=== PATIENT | female | born 1985 | race Caucasian/White ===

== ENCOUNTER 2025-01-20 10:28 | Emergency (ER) | payer OTHER, SELFPAY ==
[2025-01-20] VITALS (14 sets, daily range): BP systolic 119–131; BP diastolic 74–86; PULSE 66–89; RESP 12–20; TEMP 36.4; O2SAT 94–100
--- NOTE | 2025-01-20 10:31 | ECG_ITS ---
Test Date: 2025-01-20 10:49:22 Measurements Intervals [place] Rate: 71 P: 42 NH: 139 QRS: 32 QRSD: 82 T: 30 QT: 363 QTc: 396 Interpretive Statements SINUS RHYTHM WITH SINUS ARRHYTHMIA BASELINE ARTIFACT- I, II, III, AVR, AVL, AVF NORMAL ECG No previous ECG available for comparison Electronically Signed On 01-20-2025 11:05:01 CDT by Emilio Figueroa D.O.
--- OUTSIDE RECORDS SUMMARY | 2025-01-20 11:46 | XMS_ITS | Encounter Summary ---
Author Organization [facility] Address [address] [place] [address] Care Team Providers Care Watermelon Inspector Name Role Phone Britt Jose MD Primary Care Provider [phone] Encounter Details Date Type Department Care Team (Latest Contact Info) Description 06/21/2022 Broomstick Productionshart Message Enc [facility] Multispecialty Care - [place] [address] [place] [address] [address] [place], [place] [phone] Britt Jose MD [address] [facility] [address] [place], [place] [phone] Estrogen/hormones levels Social History Tobacco Use Types Packs/Day Years Used Date Smoking Tobacco: Never Smokeless Tobacco: Never Comments:counseled by Dr Maryam reeves Alcohol Use Standard Drinks/Week Comments Yes 1.7 (1 standard drink = 0.6 oz p ure alcohol) occasionally PHQ-2 Answer Date Recorded PHQ-2 Score - If the patient scores above 3, please move on to questions 3-9 2 05/13/2022 Comments No Sex and Gender Information Value Date Recorded Sex Assigned at Not on file Legal Sex Female 9:50 AM CDT Gender Identity Not on file Sexual Orientation Not on file COVID-19 Exposure Response Date Recorded In the last 10 days, have yo u been in contact with someone who was confirmed or suspected to have Coronavirus/COVID-19? No / Unsure 06/24/2022 10:09 AM CDT documented as of this encounter Plan of Treatment Not on file documented as of this encounter Visit Diagnoses Not on filedocumented in this encounter Additional Health Concerns Assessment Noted Time PHQ-9 Depression Total Score: 1 11/01/19 22 11:48 AM SUPERVISOR POWDER AND PRIMER CANNING documented as of this encounter Care Teams Watermelon Inspector Relationship Specialty Start Date End Date Britt Jose MD [address] [address] PCP - General INTERNAL MEDICINE 04/26/21 documented as of this encounter
--- OUTSIDE RECORDS SUMMARY | 2025-01-20 11:46 | XMS_ITS | Encounter Summary ---
Author Organization [facility] Address [address] [place] [address] Care Team Providers Care Acute Care Occupational Therapist Name Role Phone Britt Jose MD Primary Care Provider [phone] Encounter Details Date Type Department Care Team (Late st Contact Info) Description 09/07/2022 Pharminoxhart Message Enc [facility] Multispecialty Care - [place] [address] [address] [place], [place] [phone] Britt Jose MD [address] [place] [address] 157 [place], [place] [phone] Sinus infection Social History Tobacco Use Types Packs/Day Years Used Date Smoking Tobacco: Never Smokeless Tobacco: Never Comments:counseled by Dr Maryam reeves Alcohol Use Standard Drinks/Week Comments Yes 1.7 (1 standard drink = 0.6 oz p ure alcohol) occasionally PHQ-2 Answer Date Recorded PHQ-2 Score - If the patient scores above 3, please move on to questions 3-9 0 07/22/2022 Comments No Sex and Gender Information Value Date Recorded Sex Assigned at Not on file Legal Sex Female 9:50 AM CDT Gender Identity Not on file Sexual Orientation Not on file COVID-19 Exposure Response Date Recorded In the last 10 days, have yo u been in contact with someone who was confirmed or suspected to have Coronavirus/COVID-19? No / Unsure 08/12/2022 8:34 AM CDT documented as of this encounter Plan of Treatment Not on file documented as of this encounter Visit Diagnoses Not on filedocumented in this encounter Additional Health Concerns Assessment Noted Time PHQ-9 Depression Total Score: 1 11/01/19 22 11:48 AM BOW MAKER PRODUCTION documented as of this encounter Care Teams Acute Care Occupational Therapist Relationship Specialty Start Date End Date Britt Jose MD [address] [address] PCP - General INTERNAL MEDICINE 04/26/21 documented as of this encounter
--- OUTSIDE RECORDS SUMMARY | 2025-01-20 11:46 | XMS_ITS | Encounter Summary ---
Author Organization [facility] Address [address] [place] [address] Care Team Providers Care Sports Book Server Name Role Phone Raoul Fairbanks MD Primary Care Provider [phone] Encounter Details Date Type Department Care Team (Late st Contact Info) Description 03/17/2020 Lab Requisition [facility] DermPath Lab [address] [facility], [place] [address] Laura Malloy DO [address] [facility] 3 [place] [address] Social History Tobacco Use Types Packs/Day Years Used Date Smoking Tobacco: Never Smokeless Tobacco: Never Comments No Sex and Gender Information Value Date Recorded Sex Assigned at Not on file Legal Sex Female 3:41 PM CDT Gender Identity Not on file Sexual Orientation Not on file documented as of this encounter Plan of Treatment Not on file documented as of this encounter Procedures Procedure Name Priority Date/Time Associated Diagnosis Comments DERMATOPATHOLOGY Routine 03/16/2020 12:0 0 AM CDT documented in this encounter Results * DERMATOPATHOLOGY (03/16/2020 12:00 AM CDT) Case Report Dermatopathology Report Case: [id number] Authorizing Provider: Laura Malloy DO Collected: 03/16/2020 12:00 AM Ordering Location: [facility] DermPath Lab Received: 03/17/2020 06:56 AM Pathologist: Alexandra Downey MD Specimen: Skin, left upper arm 0 3:29 PM CDT DERMATOPATHOLOGY LABORATORY Final Diagnosis Specimen A. SKIN, left upper arm: COMPOUND MELANOCYTIC PROLIFERATION; PRESENT AT MARGIN (D48.5) (see microscopic description and comment) 0 3:29 PM CDT DERMATOPATHOLOGY LABORATORY Clinical History R/O BCC. 0 3:29 PM CDT DERMATOPATHOLOGY LABORATORY Gross Description Specimen A: Received is one formalin filled container labeled with the patient's name and designated left upper arm. The specimen consists of a shave measuring [id number]. Jar 0. 0 3:29 PM CDT DERMATOPATHOLOGY LABORATORY Microscopic Description Specimen A. SKIN, left upper arm: Sections show a compound melanocytic proliferation. There is a lentiginous proliferation of melanocytes between irregular nests that is highlighted by MART-1/Melan A and HMB45 stains. Scattered melanocytes show evidence of upward migration within the epidermis. In the dermis there are irregular nests of melanocytes. This lesion is present at the margin of the specimen. COMMENT: Because this lesion is present at the margin of the specimen, symmetry and circumscription can not be evaluated. Therefore, a complete but conservative re-excision is recommended to evaluate this lesion in its entirety. 0 3:29 PM T DERMATOPATHOLOGY LABORATORY Disclaimer An external and internal positive and negative controls are appropriate for the histochemical, immunohistochemical and immunofluorescence stain(s) in this case (if any), except where stated explicitly. The performance characteristics of the stain(s) cited in this report were developed and its performance characteristic determined by the Dermatopathology Laboratory at [facility], directed by Dr. Ryan Mendoza. These tests need not be, and therefore are not, approved by the [place] Food and Drug Administration. The tests are used for clinical purposes. Billing Codes Specimen Charges Stain Charges 35753 1 71546 57198 1 1 0 3:29 PM CDT DERMATOPATHOLOGY LABORATORY Embedded Images 0 3:29 PM CDT DERMATOPATHOLOGY LABORATORY Pathology/Cytolog y TISSUE SPECIMEN FROM SKIN / Unknown 03/16/2020 03/17/2020 6:56 AM CDT us Laura Malloy DO LAB - PATHOLOGY/CYTOLOGY ORDERABLES Final Result DERMATOPATHOLOGY LABORATORY [facility] - Department of Dermatology Director Of Acquisition Marketing Center/[address] [phone] documented in this encounter Visit Diagnoses Not on filedocumented in this encounter Care Teams Sports Book Server Relationship Specialty Start Date End Date Raoul Fairbanks MD PCP - General 04/28/20 documented as of this encounter
--- OUTSIDE RECORDS SUMMARY | 2025-01-20 11:46 | XMS_ITS | Encounter Summary ---
Author Organization [facility] Address [address] [place] [address] Care Team Providers Care Agency Recruiter Name Role Phone Britt Jose MD Primary Care Provider [phone] Encounter Details Date Type Department Care Team (Latest Contact Info) Description 08/03/2022 Spacecomhart Message Enc [facility] Medical Group Multispecialty Care - [place] [address] [place] [address] [address] [place] [address] Britt Jose MD [address] [facility] 157 [place], [place] [phone] Discontinue zoloft Social History Tobacco Use Types Packs/Day Years [...] suspected to have Coronavirus/COVID-19? No / Unsure 07/29/2022 8:42 AM CDT documented as of this encounter Plan of Treatment Not on file documented as of this encounter Visit Diagnoses Not on filedocumented in this encounter Additional Health Concerns Assessment Noted Time PHQ-9 Depression Total Score: 1 11/01/19 22 11:48 AM TOWN JUSTICE documented as of this encounter Care Teams Agency Recruiter Relationship Specialty Start Date End Date Britt Jose MD [address] [address] PCP - General INTERNAL MEDICINE 04/26/21 documented as of this encounter
--- OUTSIDE RECORDS SUMMARY | 2025-01-20 11:46 | XMS_ITS | Encounter Summary ---
Author Organization [facility] Address [address] [place] [address] Care Team Providers Care Wood Barker Name Role Phone Britt Jose MD Primary Care Provider [phone] Encounter Details Date Type Department Care Team (Late st Contact Info) Description 04/05/2023 Watermark Medicalhart Message [facility] - [facility] [address] [place], [place] [address] [facility], [facility] Provider Air Quality Message Social History Tobacco Use Types Packs/Day Years [...] Total Score: 1 11/01/19 22 11:48 AM CLINICAL REGISTERED NURSE documented as of this encounter Care Teams Wood Barker Relationship Specialty Start Date End Date Britt Jose MD [address] [facility] [address] [place] [address] PCP - General INTERNAL MEDICINE 04/26/21 documented as of this encounter
--- OUTSIDE RECORDS SUMMARY | 2025-01-20 11:46 | XMS_ITS | Encounter Summary ---
Author Organization [facility] Address [address] [facility] [place] [address] Care Team Providers Care Head Of Maintenance Name Role Phone Raoul Fairbanks MD Primary Care Provider [phone] Encounter Details Date Type Department Care Team (Late st Contact Info) Description 07/30/2024 Lab Requisition [facility] - DermPath Lab [address] [facility], [place] [address] Stacy Malone MD [address] [facility] 3 [place] [address] Social History Tobacco Use Types Packs/Day Years [...] Priority Date/Time Associated Diagnosis Comments DERMATOPATHOLOGY Routine 07/30/2024 9:44 AM CDT documented in this encounter Results * DERMATOPATHOLOGY (07/30/2024 9:44 AM CDT) Case Report Dermatopathology Report Case: [id number] Authorizing Provider: Stacy Malone MD Collected: 07/30/2024 09:44 AM Ordering Location: [facility] Physician [facility] - Received: 07/30/2024 04:29 PM DermPath Lab Pathologist: Shiloh Hurtado MD Specimen: Skin, mid low back 4:04 PM CDT DERMATOPATHOLOGY LABORATORY Final Diagnosis Specimen A. SKIN, mid low back: LENTIGINOUS MELANOCYTIC NEVUS, COMPOUND TYPE (D22.5) 4:04 PM CDT DERMATOPATHOLOGY LABORATORY Clinical History Nevus r/o atypia, irregular color 4:04 PM CDT DERMATOPATHOLOGY LABORATORY Gross Description Specimen A: Received is one formalin filled container labeled with the patient's name and designated mid low back. The specimen consists of a shave biopsy measuring 6x6x1 mm. Jar 0. 4:04 PM CDT DERMATOPATHOLOGY LABORATORY Microscopic Description Specimen A. SKIN, mid low back: This is a compound nevus. There is a lentiginous proliferation of melanocytes between nevus nests of cells along the dermal-epidermal junction. There is underlying lamellar fibroplasia of the papillary dermis. The intradermal component is bland in appearance and matures with depth. (Compound Jluis's Nevus) 4:04 PM CDT DERMATOPATHOLOGY LABORATORY Disclaimer An external and internal positive and negative controls are appropriate for the histochemical, immunohistochemical and immunofluorescence stain(s) in this case (if any), except where stated explicitly. The performance characteristics of the stain(s) cited in this report were developed and its performance characteristic determined by the Dermatopathology Laboratory at [facility], directed by Dr. Ryan Mendoza. These tests need not be, and therefore are not, approved by the [place] Food and Drug Administration. The tests are used for clinical purposes. Billing Codes Specimen Charges Stain Charges 08213 1 4:04 PM CDT DERMATOPATHOLOGY LABORATORY Embedded Images 4:04 PM CDT DERMATOPATHOLOGY LABORATORY Pathology/Cytolo gy TISSUE SPECIMEN FROM SKIN / Unknown 07/30/2024 9:44 AM CDT 07/30/2024 4:29 PM CDT Stacy Malone MD LAB - PATHOLOGY/CYTOLOGY OR DERABLES Final Result DERMATOPATHOLOGY LABORATORY [facility] - Department of Dermatology [address], [address] [phone] documented in this encounter Visit Diagnoses Not on filedocumented in this encounter Care Teams Head Of Maintenance Relationship Specialty Start Date End Date Raoul Fairbanks MD PCP - General 04/28/20 documented as of this encounter
--- OUTSIDE RECORDS SUMMARY | 2025-01-20 11:46 | XMS_ITS | Clinical Summary ---
Author Organization [facility] Address [address] [facility] [place] [address] Care Team Providers Care Powder Coater Name Role Phone Raoul Fairbanks MD Primary Care Provider [phone] [facility],non-owned Affiliates and Associated Physician Practices is amultiple site organization consisting of ambulatory clinics and hospital sitesin [place], [place], [place] and [place]. This disclosure is being madepursuant to the Care Everywhere program and may not contain all information available regarding this patient. Last updated 18.[facility] Allergies No known active allergies Medications * Be aware that medications may not be up to date on this document. Alwaysverify current medications with the patient. Cetirizine HCl (ZYRTEC ALLERGY PO) Active Vit-Fe Fumarate-FA ( VITAMIN) 27-0.8 MG tablet Take 1 tablet by mouth once daily Active etonogestrel (NEXPLANON) 68 MG implant 68 mg by Subdermal route as directed Active Social History Tobacco Use Types Packs/Day Years Used Date Smoking Tobacco: Never Smokeless Tobacco: Never Comments No Sex and Gender Information Value Date Recorded Sex Assigned at Not on file Legal Sex Female 3:41 PM CDT Gender Identity Not on file Sexual Orientation Not on file Last Filed Vital Signs Vital Sign Reading Time Taken Comments Blood Pressure 128/80 09/30/2019 6:55 PM FRYER OPERATOR Pulse 80 09/30/2019 6:55 PM FRYER OPERATOR Temperature 36.6 C (97.8 F) 09/30/2019 6:55 PM FRYER OPERATOR Respiratory Rate 16 09/30/2019 6:55 PM FRYER OPERATOR Oxygen Saturation 98% 09/30/2019 6:55 PM FRYER OPERATOR Inhaled Oxygen Concentration - - Weight 81.6 kg (180 lb) 09/30/2019 6:55 PM FRYER OPERATOR Height 170.2 cm (5' 7 ) 09/30/2019 6:55 PM FRYER OPERATOR Body Mass Index 28.19 09/30/2019 6:55 PM FRYER OPERATOR Plan of Treatment Health Maintenance Due Date Last Done Comments PAP SMEAR 1986 HIV SCREENING 2001 HEPATITIS C SCREENING 05/07/2004 DTAP/TDAP/TD VACCINES (1 - Tdap) 2005 HEPATITIS B VACCINE (1 of 3 - 19+ 3-dose series) 2005 COVID-19 VACCINE ( - 2023-2 5 season) 2024 DEPRESSION SCREENING 10/09/2024 INFLUENZA VACCINE (Season Ended) 2025 ZOSTER VACCINE (1 of 2) 2036 HIB VACCINE Aged Out No longer eligi ble based on patient's age to complete this topic HPV VACCINE Aged Out No longer eligi ble based on patient's age to complete this topic MENINGOCOCCAL (Group B) VACC INE SHARED DECISION-MAKING Aged Out No longer eligibl e based on patient's age to complete this topic MENINGOCOCCAL GROUPS A/C/Y/W VACCINE Aged Out No longer eligible b ased on patient's age to complete this topic PNEUMOCOCCAL VACCINE Aged Out No long er eligible based on patient's age to complete this topic Insurance [facility] Care Teams Powder Coater Relationship Specialty Start Date End Date Raoul Fairbanks MD PCP - General 04/28/20
--- OUTSIDE RECORDS SUMMARY | 2025-01-20 11:46 | XMS_ITS | Encounter Summary ---
Author Organization [facility] Address [address] [facility] [place] [address] Care Team Providers Care Engineering Scientist Name Role Phone Raoul Fairbanks MD Primary Care Provider [phone] Encounter Details Date Type Department Care Team (Late st Contact Info) Description 04/28/2020 Lab Requisition [facility] DermPath Lab [address] [facility], [place] [address] Laura Malloy DO 12[address] [facility] 3 [place] [address] Social History Tobacco Use Types Packs/Day Years [...] Priority Date/Time Associated Diagnosis Comments DERMATOPATHOLOGY Routine 04/27/2020 12:0 0 AM CDT documented in this encounter Results * DERMATOPATHOLOGY (04/27/2020 12:00 AM CDT) Case Report Dermatopathology Report Case: [id number] Authorizing Provider: Laura Malloy DO Collected: 04/27/2020 12:00 AM Ordering Location: [facility] DermPath Lab Received: 04/28/2020 06:18 AM Pathologist: Shiloh Hurtado MD Specimen: Skin, left upper arm 0 7:51 PM CDT DERMATOPATHOLOGY LABORATORY Final Diagnosis Specimen A. SKIN, left upper arm: DERMAL SCAR RESIDUAL MELANOCYTIC PROLIFERATION NOT IDENTIFIED (L90.5) 0 7:51 PM CDT DERMATOPATHOLOGY LABORATORY Clinical History Compound sivakumar prolif bx proven. Previous Bx: [id number]. 0 7:51 PM CDT DERMATOPATHOLOGY LABORATORY Gross Description Specimen A: Received is one formalin filled container labeled with the patient's name and designated left upper arm.The specimen consists of an ellipse measuring [id number] and is oriented with the notch at the 12 o'clock position, not labeled on the requisition. The epidermal surface consists of a centrally located 6x6mm previous biopsy site. The 12 to 6 o'clock margin is inked green. The 6 o'clock to 12 o'clock margin is inked black. The 12 o'clock tip is submitted in cassette 1. The 6 o'clock tip is submitted in cassette 2. The remainder of the ellipse is serially sectioned and submitted in cassettes 3-4. Jar 0. 0 7:51 PM CDT DERMATOPATHOLOGY LABORATORY Microscopic Description Specimen A. SKIN, left upper arm: There are fibroblasts and collagen bundles oriented parallel to the skin surface. There are elongated blood vessels, some of which are oriented perpendicular to the skin surface. No residual melanocytic proliferation is identified. 0 7:51 PM CDT DERMATOPATHOLOGY LABORATORY Disclaimer An external and internal positive and negative controls are appropriate for the histochemical, immunohistochemical and immunofluorescence stain(s) in this case (if any), except where stated explicitly. The performance characteristics of the stain(s) cited in this report were developed and its performance characteristic determined by the Dermatopathology Laboratory at [facility], directed by Dr. Ryan Mendoza. These tests need not be, and therefore are not, approved by the [place] Food and Drug Administration. The tests are used for clinical purposes. Billing Codes Specimen Charges Stain Charges 33009 1 0 7:51 PM CDT DERMATOPATHOLOGY LABORATORY Embedded Images 0 7:51 PM CDT DERMATOPATHOLOGY LABORATORY Pathology/Cytolog y TISSUE SPECIMEN FROM SKIN / Unknown 04/27/2020 04/28/2020 6:18 AM CDT us Laura Malloy DO LAB - PATHOLOGY/CYTOLOGY ORDERABLES Final Result DERMATOPATHOLOGY LABORATORY [facility] - Department of Dermatology Cyber Security Systems Engineer Center/[address] [phone] documented in this encounter Visit Diagnoses Not on filedocumented in this encounter Care Teams Engineering Scientist Relationship Specialty Start Date End Date Raoul Fairbanks MD PCP - General 04/28/20 documented as of this encounter
--- OUTSIDE RECORDS SUMMARY | 2025-01-20 11:46 | XMS_ITS | Clinical Summary ---
Author Organization [facility] Address [facility] [place] [address] Care Team Providers Care Final Dressing Cutter Name Role Phone Britt Jose MD Primary Care Provider [phone] Allergies No known active allergies Medications Cetirizine HCl (ZYRTEC ALLERGY) 10 MG CapIndications:Al lergic rhinitis, unspecified seasonality, unspecified trigger Take 10 mg by mouth daily as needed. 30 capsule 2 Active albuterol sulfate HFA 108 (90 Base) MCG/ACT inhalerIndication s:Allergic rhinitis, unspecified seasonality, unspecified trigger,Mild intermittent asthma without complication (HHS/HCC) Inhale 2 puffs into the lungs every 6 (six) hours as needed for Wheezing. 18 g 5 2 Active sertraline (ZOLOFT) 50 MG tabletIndications :RIMA (generalized anxiety disorder) Take 1 tablet (50 mg total) by mouth daily. 30 tablet 1 2 Active vitamin D2, ergocalciferol, (DRISDOL) 26492 UNITS capsuleIndication s:Vitamin D deficiency Take 1 capsule (50,000 Units total) by mouth weekly. 12 capsule 1 2 Active vitamin B-12 (CYANOCOBALAMIN) (CYANOCOBALAMIN) 1000 mcg tabletIndications :Vitamin B 12 deficiency Take 1 tablet (1,000 mcg total) by mouth daily. 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 HPV 16+/18-, 2018 pap - HPV+, 06/2018 pap-, 05/2017 pap -, 05/2017 Colpo ECC-, 10/2016 ASCUS HPV+ Consult with Dr. Munoz scheduled 11/29/21 Cervical high risk human pap illomavirus (HPV) DNA test positive 04/26/2021 Thrombophilia ([facility]) 06/02/2017 H/O: depression 05/18/2017 Allergic rhinitis 11/09/2009 Mild intermittent asthma ([facility]) 11/15/2004 Resolved Problems Problem Noted Date Diagnosed Date Resolved Date COVID-19 04/26/2021 04/26/2021 Vitamin D deficiency 01/25/2021 021 Hyperlipidemia 11/24/2020 04/26/2021 IUGR (intrauterine growth re striction) affecting care of mother, third trimester, fetus [address]) 12/06/2018 04/26/2021 Overview (04/26/2021): Last Assessment & Plan: EFW 1967g <5% Breech presentation Anterior placenta CHAGO 11.5cm Bpp 8 PI 1.17 MCA PS 57.4 BMZ given in office today followed by Dexamethasone 4mg po TID for 2 days. Recommend delivery at 37 weeks gestation Continue twice weekly testing Global care continues with Dr Colbert. History of 08/20/2018 021 Overview (04/26/2021): Last Assessment & Plan: Desires repeat History of delivery, currently in third trimester ([facility]) 08/20/2018 IUGR (intrauterine growth re striction) in prior , , third trimester ([facility]) 08/20/2018 04/26/2021 Asthma ([facility]) 05/18/2017 04/26/2021 Immunizations Immunization Administration Dates Next Due Fluzone 6 Months+ Quad (0.5 mL Prefilled Syringe ) 07/22/2022,11/01/2021 Tdap (Generic) 11/27/2018,03/17/2017 Family History Medical History Relation Comments CKD Maternal Grandfather Cancer Maternal Grandfather Testicular and bladder cancer testicular cancer Maternal Grandfather Alcohol Abuse Mother Depression Mother Diabetes Mother Drug Abuse Mother Mental Health Mother Relation Status Comments Father Alive Maternal Grandfather Mother Alive Social History Tobacco Use Types Packs/Day Years Used Date Smoking Tobacco: Never Smokeless Tobacco: Never Tobacco Cessation:Counseling Given: Yes Comments:counseled by Dr Joes Alcohol Use Standard Drinks/Week Comments Yes 1.7 [...] Sign Reading Time Taken Comments Blood Pressure 112/74 07/22/2022 11:06 AM CDT Pulse 72 07/22/2022 11:06 AM CDT Temperature 37.2 C (99 F) 07/22/2022 11:06 AM CDT Respiratory Rate 16 07/22/2022 11:06 AM CDT Oxygen Saturation 98% 07/22/2022 11:06 AM CDT Inhaled Oxygen Concentration - - Weight 86.6 kg (191 lb) 07/22/2022 11:06 AM CDT Height 172.7 cm (5' 8 ) 07/22/2022 11:06 AM CDT Body Mass Index 29.04 07/22/2022 11:06 AM CDT Plan of Treatment Health Maintenance Due Date Last Done Comments Pneumococcal Vaccine: Pediatrics (0 to 5 Years) and At-Risk Patients (6 to 49 Years) (1 of 2 - PCV) 1992 Hepatitis B Vaccines (1 of 3 - 19+ 3-dose series) 2005 Annual Physical 05/13/2023 05/13/2022, 04/26/2021 COVID-19 Vaccine (2023-2 5 season) 2024 10/13/2021, 01/31/2021, 01/09/2021 Cervical Cancer Screening Pa p Smear (Age 30 to 64) Every 3 Years 08/16/2024 08/16/2021 PHQ-2 (Physician Mobile) 10/09/2024 Cervical Cancer Screening Pa p with HPV Testing (Age 30 to 64) Every 5 Years 07/22/2025 07/22/2020 Cervical Cancer Screening wi th HPV 07/22/2025 DTaP, Tdap and Td Vaccines ( 3 - Td or Tdap) 11/27/2028 11/27/2018, 03/17/2017 Hepatitis C Completed 05/13/2022 HPV Vaccines Aged Out No longer eligi ble based on patient's age to complete this topic Meningococcal B Vaccine Aged Out No l onger eligible based on patient's age to complete this topic Meningococcal Vaccine Aged Out No claudia salazar eligible based on patient's age to complete this topic RSV Immunizations Under 20 Months Aged Out No longer eligible b ased on patient's age to complete this topic Procedures Procedure Name Priority Date/Time Associated Diagnosis Comments HEPATITIS C ANTIBODY Routine 05/13/2022 9:39 AM CDT Annual physical exam General medical exam Encounter for hepatitis C screening test for low risk patient OUTSIDE CYTOPATH CERV/VAG INTERPRET (PAP) 07/22/2020 from Last 3 Months or Most Recently Relevant to Health Maintenance Results * HEPATITIS C ANTIBODY (05/13/2022 9:39 AM CDT) HEPATITIS C AB NON-REACTI VE NON-REACT LUCY 05/13/2022 6:42 PM CDT [facility] Comment: ANTIBODIES TO HCV NOT DETECTED. DOES NOT EXCLUDE THE POSSIBILITY OF EXPOSURE TO HCV. 05/13/2022 9:39 AM CDT Britt Jose MD LABORATORY Final Result [facility] [address] [place] [address], [id number] * OUTSIDE CYTOPATH VAG/CERV PAP WITH HPV (07/22/2020) 07/22/2020 Narrative 07/22/2020 Ordered by an unspecified provider. us Documents Scanned SCANNING Final Result from Last 3 Months or Most Recently Relevant to Health Maintenance Insurance Care Teams Final Dressing Cutter Relationship Specialty Start Date End Date Britt Jose MD [address] [facility] [address] [place] [id number] PCP - General INTERNAL MEDICINE 04/26/21
--- OUTSIDE RECORDS SUMMARY | 2025-01-20 11:46 | XMS_ITS | Clinical Summary ---
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 Gender Identity Not on file Sexual Orientation Not on file Plan of Treatment Health Maintenance Due Date Last Done Comments Hepatitis C Virus (HCV) Screening 1986 Hepatitis B Immunization (1 of 3 - 19+ 3-dose series) 2005 Influenza Immunization (#1) 2024 SARS-COV-2 Immunization ( season) 2024 10/13/2021, 01/31/2021, 01/09/2021 Respiratory Syncytial Virus (RSV) Immunization (Adult) (1 - 1-dose 75+ series) 2061 DTaP/Tdap/Td Immunization Discontinued 11/27/2018 TdaP Immunization Completed 11/27/2018 Meningococcal Immunization (ACWY) Aged Out No longer eligible based on patient's age to complete this topic Pneumococcal Immunization Combined Aged Out No longer eligible based on patient's age to complete this topic Rotavirus Immunization Aged Out No lo nger eligible based on patient's age to complete this topic
--- NOTE | 2025-01-20 12:16 | ED_ITS ---
HPI - Arrhythmia/Palpitations General Chief Complaint: Arrhythmia/Palpitations Stated Complaint: my heart is skipping beats Time Seen by Provider: 01/20/25 12:11 Source: patient Mode of arrival: ambulatory Limitations: no limitations History of Present Illness HPI narrative: 39 years old white female with history of anxiety depression not on medications came to the ED by private car from home complaining of intermittent feeling of skipped beats for over 1 month, was seen by family physician recently, scheduled for possible Holter monitor placement next week. Patient is telling me that [place] and that is stressful for her. She denies any chest pain, abdominal pain or any pain. Patient denies any fever, chills, nausea, vomiting, diarrhea, constipation or urinary symptoms. Related Data Home Medications ?Medication ?Instructions ?Recorded ?Confirmed ?Last Taken ?Type cetirizine 10 mg tablet (24Hour 10 mg PO DAILY 01/20/25 01/20/25 Unknown History Allergy) ergocalciferol (vitamin D2) 1,250 1,250 mcg PO WEEKLY 01/20/25 01/20/25 Unknown History mcg (50,000 unit) capsule Allergies Allergy/AdvReac Type Severity Reaction Status Date / Time No Known Allergies Allergy Unverified 01/20/25 11:16 Review of Systems 2 Review of Systems: All systems reviewed & are unremarkable except as noted in HPI and below Exam 2 Narrative: General appearance: Well-developed, well-nourished, looks anxious Skin: Normal color Head: Normocephalic, nontraumatic Eyes: Clear conjunctiva ENT: Oropharynx normal, ears normal, nose normal Neck: Supple, nontender Chest and respiratory: Airway patent, no respiratory distress, no accessory muscle use Heart: Regular rate/rhythm Abdomen: Soft, nontender, no organomegaly, quiet bowel sounds Vascular: Normal peripheral pulses, normal capillary refill. Musculoskeletal: Normal range of motion, nontender back Neurologic: Alert and oriented ?3, BESSEMER REGULATOR is normal as tested, no gross motor deficit Course Vital Signs Vital signs: Vital Signs Temperature 36.4 C L 01/20/25 11:05 Pulse Rate 75 01/20/25 11:05 Respiratory Rate 16 01/20/25 11:05 Blood Pressure 126/74 01/20/25 11:05 Pulse Oximetry 98 01/20/25 11:05 Oxygen Delivery Room Air 01/20/25 11:05 Temperature 36.4 C L 01/20/25 11:05 Pulse Rate 81 01/20/25 14:17 Respiratory Rate 13 01/20/25 14:17 Blood Pressure 130/86 01/20/25 14:17 Pulse Oximetry 94 01/20/25 14:17 Oxygen Delivery Room Air 01/20/25 11:05 MDM - Arrhythmia/Palpitations MDM Narrative Medical decision making narrative: Patient presents with feeling skipped beats Vital signs are stable Physical examination showing slightly stressed looking patient Differential diagnosis anxiety like symptoms, palpitation, electrolyte imbalance, dehydration, cardiac abnormalities, hyperthyroidism, urinary tract infection, Blood workup today includes CBC, CMP, TSH showed no significant abnormality EKG showed normal sinus rhythm Urinalysis showed no significant abnormality Diagnosis palpitation/anxiety like symptoms Discharged home to follow-up with her family physician The pt was discharged to home.the pt,s condition upon discharge was fair,education was provided to the pt in reference to the final impression,discharge study results,treatment,prognosis and need for follow up . Differential Diagnosis Differential diagnosis: Likely other (As above) Medical Records Attestation: I reviewed the patient's medical records. Lab Data 01/20/25 12:30 01/20/25 12:30 Labs: Lab Results 01/20/25 01/20/25 Range/Units 12:30 12:37 WBC 9.0 (4.5-10.0) K/mm3 RBC 4.81 (4.2-5.4) M/mm3 Hgb 13.7 (12.0-15.0) g/dL Hct 42.1 (37.0-47.0) % MCV 87.5 (80-100) fl MCH 28.5 (26-34) pg MCHC 32.5 (32-36) g/dl RDW 11.7 (11.5-14.5) % Plt Count 266 (150-375) k/mm3 MPV 10.6 H (7.4-10.4) fl Immature Gran % (Auto) 0.2 (0-0.5) % Neut % (Auto) 59.5 (45.5-73.1) % Lymph % (Auto) 31.1 (18.3-44.2) % [place] % (Auto) 7.4 (2.6-8.5) % Eos % (Auto) 1.0 (0-4.4) % Baso % (Auto) 0.8 (0.2-1.2) % Lymph # (Auto) 2.80 (0.9-3.2) K/mm3 [place] # (Auto) 0.7 H (0.1-0.6) K/mm3 Eos # (Auto) 0.1 (0-0.3) K/mm3 Baso # (Auto) 0.1 (0.0-0.1) K/mm3 Abs Immat Gran (auto) 0.02 (0.00-0.031) K/mm3 Absolute Neuts (auto) 5.4 (1.3-6.7) K/mm3 Absolute Nucleated RBC 0.000 (0.0-0.012) K/mm3 Nucleated RBC % 0.0 (0.0-0.2) % Sodium 138 (137-145) mmol/L Potassium 4.2 (3.4-5.0) mmol/L Chloride 104 (98-107) mmol/L Carbon Dioxide 26 (22-30) mmol/L Anion Gap 8 (4-12) mmol/L BUN 19 H (7-17) mg/dL Creatinine 0.74 (0.7-1.0) mg/dL Estim Creat Clear Calc 99 ml/min Estimated GFR > 60 (59 - ) Glucose 94 (65-110) mg/dL Calcium 9.1 (8.4-10.2) mg/dL Total Bilirubin 0.5 (0.2-1.3) mg/dL AST 23 (14-36) U/L ALT 20 (6-35) U/L Alkaline Phosphatase 86 (38-126) U/L Troponin I < 0.012 (0.000-0.034) ng/mL Total Protein 8.0 (6.3-8.2) g/dL Albumin 4.7 (3.5-5.1) g/dL TSH 1.570 (0.465-4.680) uIU/mL Urine Color Yellow (Yellow) Urine Appearance Clear (Clear) Urine pH 7.0 (5.0-9.0) Ur Specific [place] 1.008 (1.001-1.035) Urine Protein Negative (Negative) mg/dL Urine Glucose (UA) Negative (Negative) mg/dL Urine Ketones Negative (Negative) mg/dL Ur Blood (Man) Negative (Negative) Urine Nitrate Negative (Negative) Urine Bilirubin Negative (Negative) Urine Urobilinogen 0.2 (<2.0) mg/dL Leukocyte Esterase Rfl Negative (Negative) KISHAN/UL POC Urine HCG, Qual Negative (Negative) Urine Opiates Screen Negative (Negative) Urine Methadone Screen Negative (Negative) Ur Barbiturates Screen Negative (Negative) Ur Phencyclidine Scrn Negative (Negative) Ur Amphetamine Screen Negative (Negative) U Benzodiazepines Scrn Negative (Negative) Urine Cocaine Screen Negative (Negative) U Cannabinoids Screen Negative (Negative) ECG Data EKG #1: Attestation: I personally reviewed and interpreted this ECG as follows: ECG completion date: 01/20/25 Interpretation: Normal sinus rhythm at 71 beats per minute, normal EKG Critical Care Time Critical Care Time Critical Care Time: No Discharge Plan Discharge Clinical Impression: Palpitations, Anxiety Patient Disposition: Home Condition: Stable Instructions: Heart Palpitations (DC), Anxiety (ED) Patient Language: Czech Prescriptions: No Action ergocalciferol (vitamin D2) 1,250 mcg (50,000 unit) capsule 1,250 mcg PO WEEKLY cetirizine [24Hour Allergy] 10 mg tablet 10 mg PO DAILY Follow-up/Referrals: Jesus,Estrella Davis APRN [Primary Care Provider] -
[2025-01-20 12:37] LABS: BEDSIDEPREGUCG Negative (Negative)
[2025-01-20 12:40] LABS: Basophils Absolute Auto 0.1 K/mm3 (0.0-0.1); Basophils Percent Auto 0.8 % (0.2-1.2); Eosinophils Absolute Auto 0.1 K/mm3 (0-0.3); Hematocrit 42.1 % (37.0-47.0); Hemoglobin 13.7 g/dL (12.0-15.0); Immature Granulocyte Absolute 0.02 K/mm3 (0.00-0.031); Immature Granulocyte Percent A 0.2 % (0-0.5); Lymphocytes Percent Auto 31.1 % (18.3-44.2); Mean Corpuscular HGB Conc 32.5 g/dl (32-36); Mean Corpuscular Hemoglobin 28.5 pg (26-34); Mean Corpuscular Volume 87.5 fl (80-100); Mean Platelet Volume 10.6 fl (7.4-10.4); Monocytes Absolute Auto 0.7 K/mm3 (0.1-0.6); Monocytes Percent Auto 7.4 % (2.6-8.5); Neutrophils Absolute Auto 5.4 K/mm3 (1.3-6.7); Neutrophils Percent Auto 59.5 % (45.5-73.1); Platelet Count Result 266 k/mm3 (150-375); Red Blood Count 4.81 M/mm3 (4.2-5.4); Red Cell Distribution Width 11.7 % (11.5-14.5)
[2025-01-20 12:45] LABS: Add Urine Microscopic? NO; Appearance Urine Clear (Clear); Bilirubin Urine Negative (Negative); Blood Urine Negative (Negative); Color Urine Yellow (Yellow); Glucose Urine UA Negative (Negative); Ketones Urine Negative (Negative); Leukocyte Esterase Ur Negative LEU/UL (Negative); Nitrate Urine Negative (Negative); Protein Urine Negative (Negative); Specific Grav Ur 1.008 (1.001-1.035); Urobilinogen Urine 0.2 mg/dL (<2.0)
[2025-01-20 13:05] LABS: Amphetamine Screen Urine Negative (Negative); Barbiturate Screen Urine Negative (Negative); Benzodiazepines Screen Urine Negative (Negative); Cannabinoid Screen Urine Negative (Negative); Cocaine Screen Urine Negative (Negative); Methadone Screen Urine Negative (Negative); Opiate Screen Urine Negative (Negative); Phencyclidine Screen Urine Negative (Negative)
[2025-01-20 13:07] LABS: Alanine Aminotransferase 20 U/L (6-35); Albumin Level 4.7 g/dL (3.5-5.1); Alkaline Phosphatase 86 U/L (38-126); Anion Gap 8 mmol/L (4-12); Aspartate Amino Transferase 23 U/L (14-36); Bilirubin,Total 0.5 mg/dL (0.2-1.3); Blood Urea Nitrogen 19 mg/dL (7-17); Calcium 9.1 mg/dL (8.4-10.2); Carbon Dioxide 26 mmol/L (22-30); Chloride 104 mmol/L (98-107); Estimated CRCL calculation 99 ml/min; Estimated Glomerular Filt Rate > 60; Glucose 94 mg/dL (65-110); Potassium 4.2 mmol/L (3.4-5.0); Sodium 138 mmol/L (137-145)
[2025-01-20 13:09] LABS: Troponin I < 0.012 ng/mL (0.000-0.034)
--- OUTSIDE RECORDS SUMMARY | 2025-01-20 13:32 | XMS_ITS | Encounter Summary ---
Author Organization [facility] Healthcare Address [address] [place] [address] Care Team Providers Care Software Engineering Supervisor Name Role Phone Mandie Colbert MD Unavailable [phone] Estrella Lee NP Primary Care Provider [phone] Encounter Details Date Type Department Care Team (Late st Contact Info) Description 01/02/2025 Results Follow-Up [facility] Medical Group Primary Care at [address] [address] Estrella Lee NP [address] [place] [address] [address] [place] [address] Social History Tobacco Use Types Packs/Day Years Used Date Smoking Tobacco: Never Cigarettes Passive Smoke Exposure: Never Smokeless Tobacco: Never Alcohol Use Standard Drinks/Week Comments Not Currently 0 (1 standard drink = 0.6 oz pur e alcohol) AUDIT-C Answer Date Recorded Q1: How often do you have a drink containing alc ohol? 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 Gender Identity Not on file Sexual Orientation Not on file documented as of this encounter Ordered Prescriptions Prescription Sig Dispense Quantity Refills Last Filled Start Date End Date ergocalciferol (VITAMIN D) 50,000 unit capsule Take 1 capsule (50,000 Units total) by mouth once a week 12 capsule 01/02/2025 documented in this encounter Plan of Treatment Upcoming Encounters Date Type Department Care Team (Late st Contact Info) Description 01/23/2025 2:30 PM CDT Hospital Encounter [facility] [address] [place] [address] documented as of this encounter Visit Diagnoses Not on filedocumented in this encounter Care Teams Software Engineering Supervisor Relationship Specialty Start Date End Date Estrella Lee NP [address] [facility] [address] [place] [address] PCP - General Family Medicine 01/19/23 Mandie Colbert MD High Voltage Electrician Obstetrics and Gynecology 07/09/18 documented as of this encounter
--- OUTSIDE RECORDS SUMMARY | 2025-01-20 13:32 | XMS_ITS | Referral Summary ---
Author Organization [facility] Address [address] [place] [address] Care Team Providers Care Stable Attendant Name Role Phone Mandie Colbert MD Unavailable [phone] Estrella Lee NP Primary Care Provider [phone] Encounters Date Type Department Care Team Description 01/02/2025 Results Follow-Up [facility] Primary Care at [address] [phone] Estrella Lee NP 01/01/2025 8:18 PM CDT - 01/01/2025 11:59 PM CDT Hospital Encounter [facility] [id number] [place] [id number] Heart palpitations; Magnesium deficiency; Vitamin D deficiency; Lipid screening; Iron deficiency Discharge Disposition: Discharge to home or self care 01/01/2025 2:00 PM CDT Lab [facility] Outpatient Lab at [address] [phone] Heart palpitations (Primary Dx) 01/01/2025 1:00 PM CDT Office Visit [facility] Primary Care at [address] [phone] Estrella Lee NP Heart palpitations (Primary Dx); Cervical cancer screening; Lipid screening; Vitamin D deficiency; Magnesium deficiency; Iron deficiency 12/31/2024 Nurse Triage [facility] Primary Care at [address] [phone] Estrella Lee, ANNIE from Last 3 Months Allergies No known active allergies Medications cetirizine (ZyrTEC) 10 mg tablet Take 1 tablet (10 mg total) by mouth daily Active ibuprofen (ADVIL,MOTRIN) 600 mg tablet Take 1 tablet (600 mg total) by mouth every 6 (six) hours as needed for pain 45 tablet 9 Active Additional Information Patient not taking.Reported on 01/01/2025 albuterol (PROAIR RESPICLICK) 90 mcg/actuation inhaler 1 Active magnesium gluconate 200 mg tabletIndicatio ns:hypomagnesem ia 1 tablet (200 mg total) Active zinc gluconate 100 mg tablet Take by mouth Ac tive ergocalciferol (VITAMIN D) 50,000 unit capsule Take 1 capsule (50,000 Units total) by mouth once a week 12 capsule 5 Active Active Problems Problem Noted Date Diagnosed Date Heart palpitations 01/01/2025 Vitamin B 12 deficiency 07/24/2022 High risk human papilloma virus (HPV) infection of cervix 09/28/2021 Overview (10/12/2021): 08/16/21 pap - HPV+, 07/28 Pap - HPV+... HPV 16+/18-, 2018 pap - HPV+, 06/2018 pap-, 05/2017 pap -, 05/2017 Colpo ECC-, 10/2016 ASCUS HPV+ Consult with Dr. Munoz scheduled 11/29/21 Vitamin D deficiency 01/25/2021 Hyperlipidemia 11/24/2020 History of 08/20/2018 Assessment & Plan (12/13/2018 12:50 PM FACE AND FILL PACKER): Desires repeat Thrombophilia 06/02/2017 Anxiety state 11/26/2009 Allergic rhinitis 11/09/2009 Mild intermittent asthma 11/15/2004 Assessment & Plan (01/23/2023 8:31 AM CDT): Uses prn inhaler very sparingly. Controlled overall. Resolved Problems Problem Noted Date Diagnosed Date Resolved Date COVID-19 01/18/2023 02/13/2024 Encounter for routine cancer follow-up 11/29/2021 02/13/2024 Abnormal uterine bleeding (AUB) 11/29/2021 02/13/2024 Cervical high risk human pap illomavirus (HPV) DNA test positive 04/26/2021 02/13/2024 IUGR (intrauterine growth re striction) affecting care of mother, third trimester, fetus 1 12/06/2018 02/13/2024 Assessment & Plan (12/13/2018 12:53 PM FACE AND FILL PACKER): EFW 1967g <5% Breech presentation Anterior placenta CHAGO 11.5cm Bpp 8/8 PI 1.17 MCA PS 57.4 BMZ given in office today followed by Dexamethasone 4mg po TID for 2 days. Recommend delivery at 37 weeks gestation Continue twice weekly testing Global care continues with Dr Colbert. IUGR (intrauterine growth re striction) in prior , , third trimester 08/20/2018 02/13/2024 History of delivery, currently in third trimester 08/20/2018 02/13/2024 cardiac anomaly affect ing , antepartum 02/28/2017 02/13/2024 Maternal HPV (human papillomavirus) 02/24/2017 02/13/2024 Asthma 02/24/2017 02/13/2024 Atypical squamous cells of u ndetermined significance on cytologic smear of cervix (ASC-US) 02/24/2017 02/13/2024 Marginal insertion of umbilical cord 02/24/2017 02/13/2024 Back pain 11/26/2009 02/13/2024 Depression 11/26/2009 02/13/2024 Assessment & Plan (01/23/2023 8:39 AM CDT): Patient wanting other recommendations that is not purely medication, discussed medication would be beneficial for her and we could see about getting her in with Psychologist for further behavioral therapies. She is agreeable, will restart the Lexapro 10 mg and follow up in 6 weeks. Immunizations Immunization Administration Dates Next Due Influenza, Quadrivalent, Spl it, Preservative Free, Intramuscular 07/22/2022,11/01/2021 Influenza, Unspecified 10/09/2023(Deferr ed: Patient Refused),10/09/2023(Deferred: Patient Refused),10/09/2022(Deferred: Patient Refused),10/09/2022(Deferred: Patient Refused) Tdap 11/27/2018,03/17/2017 Social History Tobacco Use Types Packs/Day Years Used Date Smoking Tobacco: Never Cigarettes Passive Smoke Exposure: Never Smokeless Tobacco: Never Tobacco Cessation:Counseling Given: Not Answered Alcohol Use Standard Drinks/Week Comments Not Currently [...] on file Legal Sex Female 3:12 PM FACE AND FILL PACKER Gender Identity Not on file Sexual Orientation Not on file Last Filed Vital Signs Vital Sign Reading Time Taken Comments Blood Pressure 124/66 01/01/2025 1:01 PM CDT Pulse 94 01/01/2025 1:01 PM CDT Temperature 36.9 C (98.4 F) 01/01/2025 1:01 PM CDT Respiratory Rate 16 03/23/2023 2:01 PM CDT Oxygen Saturation 98% 01/01/2025 1:01 PM CDT Inhaled Oxygen Concentration - - Weight 84.8 kg (187 lb) 01/01/2025 1:01 PM CDT Height 171 cm (5' 7.32 ) 01/01/2025 1:01 PM CDT Body Mass Index 29.01 01/01/2025 1:01 PM CDT Plan of Treatment Upcoming Encounters Date Type Department Care Team (Late st Contact Info) Description 01/23/2025 2:30 PM CDT Hospital Encounter [facility] Cardiology [address] [place] [id number] Medical Devices Implanted Type Area Director Of Strategic Sourcing Device Identifier Shelf Expiration Date Model / Serial / Lot [employer] [id number] Seprafilm 6x5in Barrier Adhesion Sterile Disposable Latex Free - [id number] Implanted:Qty: 1 on 12/27/2018 by Jaylyn Sandhu MD at [facility] [employer] [id number] 04/07/2021 [id number] / / [id number] Procedures Procedure Name Priority Date/Time Associated Diagnosis Comments ECG 12-LEAD Routine 01/01/2025 1:57 PM CDT Heart palpitations EGFR Routine 01/01/2025 12:00 PM CDT Heart palpitations DIFFERENTIAL AUTO Routine 01/01/2025 12: 00 PM CDT Heart palpitations CBC WITH AUTO DIFFERENTIAL Routine 01/01/2025 12:00 PM CDT Heart palpitations COMPREHENSIVE METABOLIC PANEL Routine 01/01/2025 12:00 PM CDT Heart palpitations IRON Routine 01/01/2025 12:00 PM CDT Heart palpitations Iron deficiency LIPID PANEL Routine 01/01/2025 12:00 PM CDT Lipid screening THYROID FUNCTION CASCADE Routine 01/01/2025 12:00 PM CDT Heart palpitations VITAMIN D 25 HYDROXY Routine 01/01/2025 12:00 PM CDT Vitamin D deficiency MAGNESIUM Routine 01/01/2025 12:00 PM CDT Heart palpitations Magnesium deficiency PAP AND HIGH RISK HPV, REFLEX TO GENOTYPING Routine 08/16/2021 1:48 PM FACE AND FILL PACKER Pap smear of cervix shows high risk HPV present Screening for human papillomavirus (HPV) HEPATITIS C ANTIBODY Routine 05/28/2018 4:16 PM CDT from Last 3 Months or Most Recently Relevant to Health Maintenance Results * ECG 12-LEAD (01/01/2025 1:57 PM CDT) Narrative Estrella Lee NP - 01/01/2025 1:57 PM CDT Estrella Lee NP 01/01/2025 1:57 PM ECG 12 lead Date/Time: 01/01/2025 1:57 PM Performed by: Estrella Lee NP Authorized by: Estrella Lee NP Previous ECG: no previous ECG available Rhythm: sinus rhythm Ectopy: infrequent PVCs Rate: normal QRS axis: normal Conduction: conduction normal ST Segments: ST segments normal T Waves: T waves normal Estrella Lee NP ECG ORDERABLES Edited Result - Final * eGFR (01/01/2025 12:00 PM CDT) eGFR 68 >=60 mL/min/1. 73 m2 Comment: Interpretive Data Reference Interval Normal >/= 90 mL/min/1.73m2 Mildly decreased* 60 - 89 mL/min/1.73m2 Mildly to moderately decreased 45 - 59 mL/min/1.73m2 Moderately to severely decreased 30 - 44 mL/min/1.73m2 Severely decreased 15 - 29 mL/min/1.73m2 Kidney Failure < 15 mL/min/1.73m2 *Relative to young adult level Estimated glomerular filtration rate is determined by the 2020 CKD-EPI equation recommended by the National Kidney Foundation (A Unifying Approach to GFR Estimation: Recommendations of the NKF-ASK Task Force on Reassessing the Inclusion of Race in Diagnosing Kidney Disease, JASN 202). The CKD-EPI equation should not be used for patients with unstable renal function and has not been validated in children and those over 70. Current interpretive data was last reviewed 2021. Blood 01/01/2025 12:0 0 PM CDT 01/01/2025 8:45 PM CDT Estrella Lee NP LAB BLOOD ORDERABLES Final Resul t VERONICA HADDAD [address] Department [place] [address] * Differential, auto (01/01/2025 12:00 PM CDT) Neutrophil abs 5.5 1.5 - 6.5 K/cumm Imm gran abs 0.0 0.0 - 0.1 K/cumm [facility] Lymphocyte abs 2.6 0.8 - 3.3 K/cumm [facility] Monocyte abs 0.6 0.2 - 0.8 K/cumm [facility] Eosinophil abs 0.1 0.0 - 0.5 K/cumm [facility] Basophil abs 0.1 0.0 - 0.1 K/cumm [facility] Neutrophil pct 61.9 % [facility] Comment: Interpretive Data Percent cell count reference ranges are not reported, since discordance with absolute values may lead to misinterpretation of CBC data. Current Interpretive Data was last revised on 2018. Imm gran pct 0.3 % [facility] Comment: Interpretive Data Percent cell count reference ranges are not reported, since discordance with absolute values may lead to misinterpretation of CBC data. Current Interpretive Data was last revised on 2018. Lymphocyte pct 29.1 % [facility] Comment: Interpretive Data Percent cell count reference ranges are not reported, since discordance with absolute values may lead to misinterpretation of CBC data. Current Interpretive Data was last revised on 2018. Monocyte pct 6.7 % [facility] Comment: Interpretive Data Percent cell count reference ranges are not reported, since discordance with absolute values may lead to misinterpretation of CBC data. Current Interpretive Data was last revised on 2018. Eosinophil pct 1.0 % [facility] Comment: Interpretive Data Percent cell count reference ranges are not reported, since discordance with absolute values may lead to misinterpretation of CBC data. Current Interpretive Data was last revised on 2018. Basophil pct 1.0 % [facility] Comment: Interpretive Data Percent cell count reference ranges are not reported, since discordance with absolute values may lead to misinterpretation of CBC data. Current Interpretive Data was last revised on 2018. Blood 01/01/2025 12:0 0 PM CDT 01/01/2025 8:31 PM CDT us Estrella Lee NP LAB BLOOD ORDERABLES Final Resul t VERONICA HADDAD [address] Department [place] [address] * Thyroid Function [place] (01/01/2025 12:00 PM CDT) TSH 1.19 0.30 - 4.20 mcIUnit/mL Blood 01/01/2025 12:0 0 PM CDT 01/01/2025 8:31 PM CDT us Estrella Lee RECORDS MANAGEMENT CLERK LAB BLOOD ORDERABLES Final Resul t Performing Organization Address City/[facility] Co de Phone Number VERONICA [address] [address] [facility] [email or web address] [address] * CBC with auto differential (01/01/2025 12:00 PM CDT) Pathologist [facility] WBC 8.9 3.8 - 9.9 K/cumm Hgb 13.4 11.9 - 15.5 g/dL [facility] Hct 40.5 35.6 - 45.5 % [facility] Plt 272 150 - 400 K/cumm [facility] MPV 11.0 9.1 - 12.3 fL [facility] RBC 4.58 3.90 - 5.20 M/cumm [facility] MCV 88.4 81.3 - 96.4 fL [facility] MCH 29.3 27.1 - 33.3 pg [facility] MCHC 33.1 32.3 - 35.7 g/dL [facility] RDW CV 12.0 11.1 - 14.9 % [facility] RDW SD 38.5 35.7 - 48.1 fL [facility] NRBC abs 0.00 0.00 - 0.01 K/cumm [facility] Blood 01/01/2025 12:0 0 PM CDT 01/01/2025 8:31 PM CDT us Estrella Lee RECORDS MANAGEMENT CLERK LAB BLOOD ORDERABLES Final Resul t Performing Organization Address City/[facility]/ZIP Co de Phone Number VERONICA HADDAD [id number] [address] [facility] [email or web address] [address] * (ABNORMAL) Vitamin D 25 hydroxy (01/01/2025 12:00 PM CDT) Pathologist [facility] Vitamin D 25-OH 18(L) 30 - 80 ng/mL Blood 01/01/2025 12:0 0 PM CDT 01/01/2025 8:31 PM CDT us Estrella Lee RECORDS MANAGEMENT CLERK LAB BLOOD ORDERABLES Edited Resu lt - Final Performing Organization Address [facility] Co de Phone Number JUANKIA [phone] [email or web address] [address] * Magnesium (01/01/2025 12:00 PM CDT) [facility] Magnesium 2.5 1.4 - 2.5 mg/dL Blood 01/01/2025 12:0 0 PM CDT 01/01/2025 8:31 PM CDT us Estrella Lee RECORDS MANAGEMENT CLERK LAB BLOOD ORDERABLES Final Resul t Performing Organization Address [facility] de Phone Number JUANKIA [address] Department [email or web address] [address] * Iron level (01/01/2025 12:00 PM CDT) [facility] Iron 73 35 - 145 mcg/dl Blood 01/01/2025 12:0 0 PM CDT 01/01/2025 8:31 PM CDT us Estrella Lee RECORDS MANAGEMENT CLERK LAB BLOOD ORDERABLES Final Resul t Performing Organization Address [facility] de Phone Number VERONICA [address] Department [email or web address] [place] [address] * (ABNORMAL) Lipid panel (01/01/2025 12:00 PM CDT) [facility] Cholesterol 190 30 - 199 mg/dL Comment: Interpretive Data Ages < or = 19 years Acceptable: <170 mg/dL Borderline high: 170-199 mg/dL High: >or= 200 mg/dL Ages > or = 20 years Desirable: <200 mg/dL Borderline high: 200-239 mg/dL High: >or= 240 mg/dL Literature References: 1. Expert Panel on Integrated Guidelines for Cardiovascular Health and Risk Reduction in Children and Adolescents. Pediatrics 2011;128:S213 2. NCEP Expert Panel. Circulation 2004;110:227 Current Interpretive Data was last revised on 2018. Triglycerides 202(H) <=149 mg/dL VERONICA Comment: Interpretive Data Ages < or = 9 years Acceptable: <75 mg/dL Borderline high: 75-99 mg/dL High: >or= 100 mg/dL Ages 10 to 20 years Acceptable: <90 mg/dL Borderline high: 90-129 mg/dL High: >or= 130 mg/dL Ages > or = 20 years Desirable: <150 mg/dL Borderline high: 150-199 mg/dL High: 200-499 mg/dL Very high: >or= 499 mg/dL Literature References: 1. Expert Panel on Integrated Guidelines for Cardiovascular Health and Risk Reduction in Children and Adolescents. Pediatrics 2011;128:S213 2. NCEP Expert Panel. Circulation 2004;110:227 Current Interpretive Data was last revised on 2018. HDL 40 >=40 mg/dL VERONICA Comment: Interpretive Data Ages < or = 19 years Acceptable: >45 mg/dL Borderline low: 40-45 mg/dL Low: <40 mg/dL Ages > or = 20 years Desirable: >or= 60 mg/dL Low: <40 mg/dL Literature References: 1. Expert Panel on Integrated Guidelines for Cardiovascular Health and Risk Reduction in Children and Adolescents. Pediatrics 2011;128:S213 2. NCEP Expert Panel. Circulation 2003;110:227 Current Interpretive Data was last revised on 2018. LDL, calculated 115 <=129 mg/dL VERONICA Comment: Interpretive Data Ages < or = 19 years Acceptable: <110 mg/dL Borderline high: 110-129 mg/dL High: >or= 130 mg/dL Ages > or = 20 years Optimal: <100 mg/dL Near optimal: 100-129 mg/dL Borderline high: 130-159 mg/dL High: >160 mg/dL Calculated using the Lei LDL-C estimating equation. This equation was implemented on 2024. Prior to this date LDL-C was estimated using the Friedewald equation. Literature References: 1. Expert Panel on Integrated Guidelines for Cardiovascular Health and Risk Reduction in Children and Adolescents. Pediatrics 2011;128:S213 2. NCEP Expert Panel. Circulation 2004;110:227 3. Quique M et al. JN Cardiol. 2020 February 06;5(5):540-548. doi: 10.1001/jamacardio.2020.0013 Current Interpretive Data was last revised on 2024. Non-HDL Cholesterol 150 mg/dL [facility] Comment: Interpretive Data Ages < or = 19 years Acceptable: <120 mg/dL Borderline high: 120-144 mg/dL High: >145 mg/dL Ages > or = 20 years When triglycerides are >200 mg/dL, Non-HDL cholesterol is a secondary target of therapy with treatment goals that are 30 mg/dL greater than the LDL cholesterol target. Literature References: 1. Expert Panel on Integrated Guidelines for Cardiovascular Health and Risk Reduction in Children and Adolescents. Pediatrics 2011;128:S213 2. NCEP Expert Panel. Circulation 2004;110:227 Current Interpretive Data was last revised on 2018. Chol/HDL ratio 5 [facility] Blood 01/01/2025 12:0 0 PM CDT 01/01/2025 8:31 PM CDT Estrella Lee NP LAB BLOOD ORDERABLES Final Resul t VERONICA [address] Department [place] [address] * Comprehensive metabolic panel (01/01/2025 12:00 PM CDT) Sodium 137 135 - 145 mmol/L Potassium, pl 4.3 3.3 - 4.9 mmol/L [facility] Chloride 102 97 - 110 mmol/L [facility] CO2 22 22 - 32 mmol/L [facility] Anion gap 13 2 - 15 mmol/L [facility] BUN 23 6 - 25 mg/dL [facility] Creatinine 1.07 0.60 - 1.10 mg/dL [facility] Glucose 89 70 - 199 mg/dL [facility] Comment: Interpretive Data Fasting glucose >/= 126 mg/dl is diagnostic for diabetes. Fasting is defined as no caloric intake for at least 8 hours. Fasting glucose between 100 mg/dl to 125 mg/dl is diagnostic of prediabetes. In a patient with classic symptoms of hyperglycemia or hyperglycemic crisis, a random glucose >/= 200 mg/dl is diagnostic for diabetes. In the absence of unequivocal hyperglycemia, results should be confirmed by repeat testing. The classification and Diagnosis of Diabetes Diabetes Care 2021; 46: S19-S40. Current interpretive data was last revised 2022. Calcium 9.4 8.5 - 10.3 mg/dL [facility] Bilirubin, total 0.2 0.1 - 1.2 mg/dL [facility] Protein, pl 7.6 6.5 - 8.5 g/dL [facility] Albumin 4.6 3.5 - 5.0 g/dL [facility] Alk phos 79 40 - 130 Units/L [facility] ALT 10 7 - 45 Units/L [facility] AST 25 10 - 45 Units/L [facility] Blood 01/01/2025 12:0 0 PM CDT 01/01/2025 8:31 PM CDT us Estrella Lee NP LAB BLOOD ORDERABLES Final Resul t VERONICA [address] Department [place] [address] * Pap and High Risk HPV, reflex to Genotyping (08/16/2021 1:48 PM FACE AND FILL PACKER) Swab (Pap test) 08/16/2021 1 :48 PM FACE AND FILL PACKER 08/18/2021 9:56 AM FACE AND FILL PACKER Narrative PATHOLOGY [facility] - 08/24/2021 9:40 AM FACE AND FILL PACKER EPIC results best viewed via link to PDF [place] [address] [facility], [place], [place] [address] Tele: Tonja Laura MD - Agriculture Professor CYTOLOGY REPORT Note to Patients: This report may contain a detailed description of human tissue sent by a health care provider to the laboratory for pathologic evaluation. The content of this report is essential for diagnosis and may provide important critical findings. This information may be unfamiliar to patients to review without a medical professional present. It is advised that the patient review this report in the presence of a health care provider who can answer questions and explain the details. Patient Name: SALIMA YANG Address: [address] [place] [address] Gender: F : 1985 (Age: 36) Service: Location: N : [id number] [facility] #: [id number] Patient Type: [facility] SPECIMEN Taken: 08/16/2021 Reported: 08/24/2021 Physician(s): Mandie Colbert M.D. FINAL DIAGNOSIS: Specimen Type: - ThinPrep Pap and HPV w/ reflex Genotyping Statement of Specimen Adequacy: Source: Cervical/Endocervical - Satisfactory for interpretation - Endocervical /Transformation Zone component present - Case screened using computer assisted imaging technology and manually re- screened by a hospitality host. General Categorization: - Negative for intraepithelial lesion or malignancy Interpretation: - Specimen sent for reflex HPV testing. xbb/08/24/2021 09:40 JENN Gatica (ASCP) JENN Webster (ASCP) Report Reviewed and Electronically Signed By JENN Webster (ASCP) Clerical Data Follow A; [id number] ADDENDA: Addendum Comment Ancillary Testing: HPV High Risk Group (16, 18, 31, 33, 35, 39, 45, 51, 52, 56, 58, 59, 66 and 68) - Detected Reference Range: Not Detected This test was performed using the SPRING 48[address] JENN Webster (ASCP) Date Ordered: 08/19/2021 Status: Signed Out Date Complete: 08/25/2021 By: JENN Webster (ASCP) Date Reported: 08/25/2021 Addendum Comment Ancillary Testing: HPV Genotype 16 - Detected Reference Range: Not Detected HPV Genotype 18 - Not Detected Reference Range: Not Detected This test was performed using the SPRING [address] JENN Webster (ASCP) Date Ordered: 08/25/2021 Status: Signed Out Date Complete: 08/25/2021 By: JENN Webster (ASCP) Date Reported: 08/27/2021 DIAGNOSIS COMMENT: Ancillary Testing: HPV High Risk Group (16, 18, 31, 33, 35, 39, 45, 51, 52, 56, 58, 59, 66 and 68) - Detected Reference Range: Not Detected This test was performed using the SPRING 48[address] CLINICAL DIAGNOSIS AND HISTORY Last Menstrual Period: 08/10/2021 This specimen has been rescreened in accordance with the [facility] Laboratory Quality Management Program. REPORT IMAGES AND/OR SCANNED DOCUMENTS ONLY VIEWABLE IN PDF FORMAT The Pap test is a screening test used to aid in the detection of cervical cancer and its precursors. It should not be the sole means by which malignant and premalignant lesions are diagnosed. Both false negative and false positive results may occur. It also has poor sensitivity for the detection of endometrial lesions and should not be used to evaluate suspected endometrial abnormalities. For these reasons it is most important to obtain Pap tests at regular intervals, as recommended by your physician or nurse practitioner. Mandie Colbert MD LAB CYTOLOGY ORDERABLES Fin al Result Performing Organization Address City/[facility]/ZIP Co de Phone Number PATHOLOGY [facility] Laboratory Receiving [address] [place] [address] * Hepatitis C antibody (05/28/2018 4:16 PM CDT) Hep C Ab Non-Reactiv e Non-Reactiv e [facility] Blood specimen (specimen) 05/28/2018 4:16 PM CDT 05/28/2018 5:20 PM CDT Narrative [facility] - 05/28/2018 6:29 PM CDT Mandie Colbert MD LAB MICROBIOLOGY - GENERAL ORDERABLES Final Result [facility] [address] Department [place] [address] from Last 3 Months or Most Recently Relevant to Health Maintenance Insurance [facility] CLAIMS [facility] CLAIMS Advance Directives For more information, please contact: [phone] * Full Code (Latest Code Status on File) Date Activated Date Inactivated Comments 12/27/2018 5:32 PM 12/29/2018 7:18 PM * Full Code Date Activated Date Inactivated Comments 12/27/2018 10:21 AM 12/27/2018 5:32 PM Full CPR in case of cardiopulmonary arrest Care Teams Stable Attendant Relationship Specialty Start Date End Date Estrella Lee NP [address] [address] PCP - General Family Medicine 01/19/23 Mandie Colbert MD Enrollment Processor Obstetrics and Gynecology 07/09/18
--- OUTSIDE RECORDS SUMMARY | 2025-01-20 13:32 | XMS_ITS | Encounter Summary ---
Author Organization [facility] Address [address] [place] [address] Phone Care Team Providers Care Supervisor Engines Road Name Role Phone Yodit Santana MD Primary Care Provider Ajith Allison DO Primary Care Provider [phone] Mandie Colbert MD Unavailable Britt Jose MD Primary Care Provider [phone] Estrella Lee NP Primary Care Provider [phone] Encounter Details Date Type Department Care Team (Latest Contact Info) Description 03/21/2017 Orders Only [facility] CONVERSION Scanning, Provider Social History Tobacco Use Types Packs/Day Years Used Date Smoking Tobacco: Never Assessed Comments Unknown Sex and Gender Information Value Date Recorded Sex Assigned at Not on file Legal Sex Female 3:12 PM PEARL FISHERMAN Gender Identity Not on file Sexual Orientation Not on file documented as of this encounter Plan of Treatment Upcoming Encounters Date Type Department Care Team (Late st Contact Info) Description 01/23/2025 2:30 PM CDT Hospital Encounter [facility] Cardiology [address] [place] [address] documented as of this encounter Procedures Procedure Name Priority Date/Time Associated Diagnosis Comments OBSTETRIC/GYNECOLOGY ULTRASONOGRAPHY REPORT 04/10/2017 9:59 AM CDT OBSTETRIC/GYNECOLOGY ULTRASONOGRAPHY REPORT 04/07/2017 9:40 AM CDT OBSTETRIC/GYNECOLOGY ULTRASONOGRAPHY REPORT 04/04/2017 9:33 AM CDT OBSTETRIC/GYNECOLOGY ULTRASONOGRAPHY REPORT 03/24/2017 11:57 AM CDT OBSTETRIC/GYNECOLOGY ULTRASONOGRAPHY REPORT 03/21/2017 9:09 AM CDT documented in this encounter Results * OBSTETRIC/GYNECOLOGY ULTRASONOGRAPHY REPORT (04/10/2017 9:59 AM CDT) Anatomical Region Laterality Modality Ultrasound us Provider Scanning IMG OB US PROCEDURES Final Res ult * OBSTETRIC/GYNECOLOGY ULTRASONOGRAPHY REPORT (04/07/2017 9:40 AM CDT) Anatomical Region Laterality Modality Ultrasound us Provider Scanning IMG OB US PROCEDURES Final Res ult * OBSTETRIC/GYNECOLOGY ULTRASONOGRAPHY REPORT (04/04/2017 9:33 AM CDT) Anatomical Region Laterality Modality Ultrasound us Provider Scanning IMG OB US PROCEDURES Final Res ult * OBSTETRIC/GYNECOLOGY ULTRASONOGRAPHY REPORT (03/24/2017 11:57 AM CDT) Anatomical Region Laterality Modality Ultrasound us Provider Scanning IMG OB US PROCEDURES Final Res ult * OBSTETRIC/GYNECOLOGY ULTRASONOGRAPHY REPORT (03/21/2017 9:09 AM CDT) Anatomical Region Laterality Modality Ultrasound us Provider Scanning IMG OB US PROCEDURES Final Res ult documented in this encounter Visit Diagnoses Not on filedocumented in this encounter Care Teams Supervisor Engines Road Relationship Specialty Start Date End Date Yodit Santana MD [address] [place] [address] PCP - General 02/10/17 05/27/18 Ajith Allison DO [address] [place] [address] PCP - General Internal Medicine 05/28/18 11/28/21 Britt Jose MD [address] [place] [address] PCP - General Internal Medicine 11/29/21 01/18/23 Estrella Lee NP [address] [facility] [address] [place] [address] PCP - General Family Medicine 01/19/23 Mandie Colbert MD [address] [place] [address] Surgery Manager Obstetrics and Gynecology 07/09/18 documented as of this encounter
--- OUTSIDE RECORDS SUMMARY | 2025-01-20 13:32 | XMS_ITS | Encounter Summary ---
Author Organization [facility] Address [address] [place] [address] Care Team Providers Care Edi Coordinator Name Role Phone Britt Jose MD Primary Care Provider [phone] Encounter Details Date Type Department Care Team (Late st Contact Info) Description 09/07/2022 Optimal Internet Solutionshart Message Enc [facility] Medical Group Multispecialty Care - [place] [address] [address] [place], [place] [id number] Britt Jose MD [address] [place] [address] [address] [place], [place] [id number] Sinus infection Social History Tobacco Use Types [...] Score: 1 11/01/19 22 11:48 AM SUPERVISOR RECORD PRESS documented as of this encounter Care Teams Edi Coordinator Relationship Specialty Start Date End Date Britt Jose MD [address] [address] PCP - General INTERNAL MEDICINE 04/26/21 documented as of this encounter
--- OUTSIDE RECORDS SUMMARY | 2025-01-20 13:32 | XMS_ITS | Encounter Summary ---
Author Organization [facility] Address [address] [facility] [place] [address] Care Team Providers Care Cosmetology Teacher Name Role Phone Raoul Fairbanks MD Primary Care Provider [phone] Encounter Details Date Type Department Care Team (Late st Contact Info) Description 03/17/2020 Lab Requisition [facility] Derm[facility] Lab [address] [facility], [place] [address] Laura Malloy DO [address] [facility] 3 [place] [address] Social History Tobacco Use Types Packs/Day Years [...] AM CDT) Case Report Dermatopathology Report Case: [id number] Authorizing Provider: Laura Malloy DO Collected: 03/16/2020 12:00 AM Ordering Location: [facility] Received: 03/17/2020 06:56 AM Pathologist: [...] The specimen consists of a shave measuring [id number]. Jar 0. 0 3:29 PM CDT DERMATOPATHOLOGY [...] characteristic determined by the Dermatopathology Laboratory at [facility], directed by Dr. Ryan Mendoza. These tests need not be, and therefore are not, approved by the [place] Food and Drug Administration. The tests are used for clinical purposes. Billing Codes Specimen Charges Stain Charges 43091 1 [id number] [id number] 1 1 0 3:29 PM CDT DERMATOPATHOLOGY LABORATORY Embedded Images 0 3:29 PM CDT DERMATOPATHOLOGY LABORATORY Pathology/Cytolog y TISSUE SPECIMEN FROM SKIN / Unknown 03/16/2020 03/17/2020 6:56 AM CDT us Laura Malloy DO LAB - PATHOLOGY/CYTOLOGY ORDERABLES Final Result DERMATOPATHOLOGY LABORATORY [facility] - Department of Dermatology [facility]/[address] [phone] documented in this encounter Visit Diagnoses Not on filedocumented in this encounter Care Teams Cosmetology Teacher Relationship Specialty Start Date End Date Raoul Fairbanks MD PCP - General 04/28/20 documented as of this encounter
--- OUTSIDE RECORDS SUMMARY | 2025-01-20 13:32 | XMS_ITS | Clinical Summary ---
Author Organization [facility] Address [address] [facility] [place] [address] Care Team Providers Care Band Builder Name Role Phone Raoul Fairbanks MD Primary Care Provider [phone] Source Comments [facility],non-owned Affiliates and Associated Physician Practices is amultiple site organization consisting of ambulatory clinics and hospital sitesin [place], [place], [place] and [place]. This disclosure is being madepursuant to the Care Everywhere program and may not contain all information available regarding this patient. Last updated 18.[facility] Allergies No known active allergies Medications * [...] Comments Blood Pressure 128/80 09/30/2019 6:55 PM AFRICAN HISTORY PROFESSOR Pulse 80 09/30/2019 6:55 PM AFRICAN HISTORY PROFESSOR Temperature 36.6 C (97.8 F) 09/30/2019 6:55 PM AFRICAN HISTORY PROFESSOR Respiratory Rate 16 09/30/2019 6:55 PM AFRICAN HISTORY PROFESSOR Oxygen Saturation 98% 09/30/2019 6:55 PM AFRICAN HISTORY PROFESSOR Inhaled Oxygen Concentration - - Weight 81.6 kg (180 lb) 09/30/2019 6:55 PM AFRICAN HISTORY PROFESSOR Height 170.2 cm (5' 7 ) 09/30/2019 6:55 PM AFRICAN HISTORY PROFESSOR Body Mass Index 28.19 09/30/2019 6:55 PM AFRICAN HISTORY PROFESSOR Plan of Treatment Health Maintenance Due Date [...] patient's age to complete this topic Insurance [facility] Care Teams Band Builder Relationship Specialty Start Date End Date Raoul Fairbanks MD PCP - General 04/28/20
--- OUTSIDE RECORDS SUMMARY | 2025-01-20 13:32 | XMS_ITS | Encounter Summary ---
Author Organization [facility] Address [address] [place] [address] Care Team Providers Care Hotel Assistant General Manager Name Role Phone Britt Jose MD Primary Care Provider [phone] Encounter Details Date Type Department Care Team (Latest Contact Info) Description 06/21/2022 [employer]art Message Enc [facility] Medical Group Multispecialty Care - [place] [address] [place] [address] [address] [place], [place] [id number] Britt Jose MD [address] [facility] [address] [place], [place] [phone] Estrogen/hormones levels Social History Tobacco Use Types [...] Total Score: 1 11/01/19 22 11:48 AM NARCOTICS INVESTIGATOR documented as of this encounter Care Teams Hotel Assistant General Manager Relationship Specialty Start Date End Date Britt Jose MD [address] [address] PCP - General INTERNAL MEDICINE 04/26/21 documented as of this encounter
--- OUTSIDE RECORDS SUMMARY | 2025-01-20 13:32 | XMS_ITS | Clinical Summary ---
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 04/26/2021 Thrombophilia ([facility]) 06/02/2017 H/O: depression 05/18/2017 Allergic rhinitis 11/09/2009 Mild intermittent asthma ([facility]) 11/15/2004 Resolved Problems Problem Noted Date Diagnosed Date Resolved Date COVID-19 04/26/2021 04/26/2021 Vitamin D deficiency 01/25/2021 021 Hyperlipidemia 11/24/2020 04/26/2021 IUGR (intrauterine growth re striction) affecting care of mother, third trimester, fetus 1 ([facility]) 12/06/2018 04/26/2021 Overview (04/26/2021): Last Assessment [...] History of delivery, currently in third trimester ([facility]) 08/20/2018 IUGR (intrauterine growth re striction) in prior , , third trimester ([facility]) 08/20/2018 04/26/2021 Asthma ([facility]) 05/18/2017 04/26/2021 Immunizations Immunization Administration Dates [...] Tobacco Cessation:Counseling Given: Yes Comments:counseled by Dr Jsoe Alcohol Use Standard Drinks/Week Comments Yes 1.7 [...] Every 3 Years 08/16/2024 08/16/2021 PHQ-2 (Physician [place]) 10/09/2024 Cervical Cancer Screening Pa p with [...] VE NON-REACT LUCY 05/13/2022 6:42 PM CDT [facility] Comment: ANTIBODIES TO HCV NOT DETECTED. DOES NOT EXCLUDE THE POSSIBILITY OF EXPOSURE TO HCV. 05/13/2022 9:39 AM CDT Britt Jose MD LABORATORY Final Result [facility] [address] [place] [address], [id number] * OUTSIDE CYTOPATH VAG/CERV PAP WITH HPV (07/22/2020) 07/22/2020 Narrative 07/22/2020 Ordered by an unspecified provider. us Documents Scanned SCANNING Final Result from Last 3 Months or Most Recently Relevant to Health Maintenance Insurance Care Teams Catering Truck Driver Relationship Specialty Start Date End Date Britt Jose MD [address] [facility] [address] [place] [address] PCP - General INTERNAL MEDICINE 04/26/21
--- OUTSIDE RECORDS SUMMARY | 2025-01-20 13:32 | XMS_ITS | Encounter Summary ---
Author Organization [facility] Address [address] [facility] [place] [address] Care Team Providers Care Chemical Equipment Repairer Name Role Phone Raoul Fairbanks MD Primary Care Provider [phone] Encounter Details Date Type Department Care Team (Late st Contact Info) Description 04/28/2020 Lab Requisition [facility] DermPath Lab [address] [facility], [place] [address] Laura Malloy DO [address] [facility] 3 [place] [address] Social History Tobacco Use Types Packs/Day Years [...] AM CDT) Case Report Dermatopathology Report Case: [id number] Authorizing Provider: Laura Malloy DO Collected: 04/27/2020 12:00 AM Ordering Location: [facility] Lab Received: 04/28/2020 06:18 AM Pathologist: Shiloh Hurtado MD Specimen: Skin, left upper arm 0 7:51 PM CDT DERMATOPATHOLOGY LABORATORY Final Diagnosis Specimen A. SKIN, left upper arm: DERMAL SCAR RESIDUAL MELANOCYTIC PROLIFERATION NOT IDENTIFIED (L90.5) 0 7:51 PM CDT DERMATOPATHOLOGY LABORATORY Clinical History Compound sivaukmar prolif bx proven. Previous Bx: [id number]. 0 7:51 PM CDT DERMATOPATHOLOGY LABORATORY Gross Description Specimen A: Received is one formalin filled container labeled with the patient's name and designated left upper arm.The specimen consists of an ellipse measuring [id number] and is oriented with the notch at [...] characteristic determined by the Dermatopathology Laboratory at [facility], directed by Dr. Ryan Mendoza. These tests need not be, and therefore are not, approved by the [place] Food and Drug Administration. The tests are used for clinical purposes. Billing Codes Specimen Charges Stain Charges 11032 1 0 7:51 PM CDT DERMATOPATHOLOGY LABORATORY Embedded Images 0 7:51 PM CDT DERMATOPATHOLOGY LABORATORY Pathology/Cytolog y TISSUE SPECIMEN FROM SKIN / Unknown 04/27/2020 04/28/2020 6:18 AM CDT us Laura Malloy DO LAB - PATHOLOGY/CYTOLOGY ORDERABLES Final Result DERMATOPATHOLOGY LABORATORY [facility] - Department of Dermatology [facility]/[address] [phone] documented in this encounter Visit Diagnoses Not on filedocumented in this encounter Care Teams Chemical Equipment Repairer Relationship Specialty Start Date End Date Raoul Fairbanks MD PCP - General 04/28/20 documented as of this encounter
--- OUTSIDE RECORDS SUMMARY | 2025-01-20 13:32 | XMS_ITS | Encounter Summary ---
Author Organization [facility] Address [address] [place] [address] Phone Care Team Providers Care Sanitary Engineering Teacher Name Role Phone Yodit Santana MD Primary Care Provider [phone] Ajith Allison DO Primary Care Provider [phone] Mandie Colbert MD Unavailable Britt Jose MD Primary Care Provider [phone] Estrella Lee NP Primary Care Provider [phone] Encounter Details Date Type Department Care Team (Latest Contact Info) Description 03/31/2017 Orders Only [facility] CONVERSION Scanning, Provider Social History Tobacco Use Types Packs/Day Years Used Date Smoking Tobacco: Never Assessed Comments Unknown Sex and Gender Information Value Date Recorded Sex Assigned at Not on file Legal Sex Female 3:12 PM CONCRETE CURER Gender Identity Not on file Sexual Orientation Not on file documented as of this encounter Plan of Treatment Upcoming Encounters Date Type Department Care Team (Late st Contact Info) Description 01/23/2025 2:30 PM CDT Hospital Encounter [facility] Cardiology [address] [place] [address] documented as of this encounter Procedures Procedure Name Priority Date/Time Associated Diagnosis Comments OBSTETRIC/GYNECOLOGY ULTRASONOGRAPHY REPORT 03/31/2017 11:27 AM CDT documented in this encounter Results * OBSTETRIC/GYNECOLOGY ULTRASONOGRAPHY REPORT (03/31/2017 11:27 AM CDT) Anatomical Region Laterality Modality Ultrasound us Provider Scanning IMG OB US PROCEDURES Final Res ult documented in this encounter Visit Diagnoses Not on filedocumented in this encounter Care Teams Sanitary Engineering Teacher Relationship Specialty Start Date End Date Yodit Santana MD [address] [place] [address] PCP - General 02/10/17 05/27/18 Ajith Allison DO [address] [place] [address] PCP - General Internal Medicine 05/28/18 11/28/21 Britt Jose MD [address] [place], [place] [phone] PCP - General Internal Medicine 11/29/21 01/18/23 Estrella Lee NP [address] [place], [place] [id number] PCP - General Family Medicine 01/19/23 Mandie Colbert MD [address] [place] [address] [place] Obstetrics and Gynecology 07/09/18 documented as of this encounter
--- OUTSIDE RECORDS SUMMARY | 2025-01-20 13:32 | XMS_ITS | Clinical Summary ---
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 Encounters Date Type Department Care Team Description 01/02/2025 Results Follow-Up [facility] Medical [facility] Primary Care at [address] [phone] Estrella Lee NP 01/01/2025 8:18 PM CDT - 01/01/2025 11:59 PM CDT Hospital Encounter [address] [address] Heart palpitations; Magnesium deficiency; Vitamin D deficiency; Lipid screening; Iron deficiency Discharge Disposition: Discharge to home or self care 01/01/2025 2:00 PM CDT Lab [facility] Outpatient Lab at [address] [address] Heart palpitations (Primary Dx) 01/01/2025 1:00 PM CDT Office Visit [facility] Primary Care at [address] [phone] Estrella Lee NP Heart palpitations (Primary Dx); Cervical cancer screening; Lipid screening; Vitamin D deficiency; Magnesium deficiency; Iron deficiency 12/31/2024 Nurse Triage [facility] Primary Care at [address] [phone] Estrella Lee NP from Last 3 Months Immunizations Immunization Administration Dates Next Due Influenza, Quadrivalent, Spl it, Preservative Free, Intramuscular 07/22/2022,11/01/2021 Influenza, Unspecified 10/09/2023(Deferr ed: Patient Refused),10/09/2023(Deferred: Patient Refused),10/09/2022(Deferred: Patient Refused),10/09/2022(Deferred: Patient Refused) Tdap 11/27/2018,03/17/2017 Surgical History Surgery Date Site/Laterality Comments [place] DELIVERY ONLY Section - (Added by TW Conv) BASAL CELL CARCINOMA EXCISION Abdomen SECTION 04/10/2017, 12/27/2018 EVERARDO 2014 Medical History Medical History Date Comments Asthma Abnormal Pap smear of cervix HPV (human papilloma virus) infection Depression Covid-19 08/12/2020 Basal cell carcinoma IUGR (intrauterine growth re striction) affecting care of mother, third trimester, fetus 1 12/06/2018 Family History Medical History Relation Name Comments Bladder Cancer Maternal Grandfather ESKD Requiring Dialysis Maternal Grandfather Testicular cancer Maternal Grandfather Alcohol abuse Mother Leonor Diabetes Mother Leonor Family history of diabetes mellitus - (Added by LIZZ Conv) Drug abuse Mother Leonor Relation Name Status Comments Maternal Grandfather Mother Leonor Social History Tobacco Use Types Packs/Day Years [...] on file Legal Sex Female 3:12 PM SCHOLASTIC APTITUDE TEST GRADER Gender Identity Not on file Sexual Orientation Not on file Obstetrics History Para Term AB IAB SAB Ectopic Multiple Livin g Live Births 2 2 1 1 0 2 2 Date Outcome GA Total Labor Labor/2nd/3rd Weight Sex Type Anes PTL Kaity A1 A5 Name Clin 017 32w 1d 1.588 kg (3 lb 8 oz) F CS-LT ranv Y Livin g Complications:IUGR (intraute rine growth restriction) affecting care of mother 019 Term 37w 0d 2.58 kg (5 lb 11 oz) F CS-LT ranv Spinal N Livin g 9 9 SCOWN ,GIRL ASHLE Y Complications:None Delivery Location:This Facil [facility] ([facility]) Comments:void at leah etienne Last Filed Vital Signs Vital Sign Reading [...] Description 01/23/2025 2:30 PM CDT Hospital Encounter [facility] [address] [place] [address] Health Maintenance Due Date Last Done Comments Hepatitis B Screening 2004 Pneumococcal vaccine <65 (1 of 2 - PCV) 2005 Regular Well Visit/Exam 18-64 08/16/2022 08/16/2021 Covid-19 Vaccine ( season) 2024 10/13/2021, 01/31/2021, 01/09/2021 Cervical Cancer Screening 03/03/2025 08/16/2021, Postponed from 08/16/2022 (Patient declined, but will receive in the future) Influenza Vaccine (Season Ended) 2025 07/22/2022, 11/01/2021 Depression Screening 01/01/2026 01/01/2025, 02/13/2024, 01/19/2023, Additional history exists DTaP/Tdap/Td Vaccine (3 - Td or Tdap) 11/27/2028 11/27/2018, 03/17/2017 Hepatitis C Screening Completed 05/28/2018 HPV Vaccines Aged Out No longer eligi ble based on patient's age to complete this topic Varicella Vaccines Discontinued Medical Devices Implanted Type Area Manager Graphic Device Identifier Shelf Expiration Date Model / Serial / Lot [employer] [id number] Seprafilm 6x5in Barrier Adhesion Sterile Disposable Latex Free - [id number] Implanted:Qty: 1 on 12/27/2018 by Jaylyn Sandhu MD at [facility] [employer] [id number] 04/07/2021 [id number] / / [id number] Procedures Procedure Name Priority Date/Time Associated Diagnosis [...] REFLEX TO GENOTYPING Routine 08/16/2021 1:48 PM SCHOLASTIC APTITUDE TEST GRADER Pap smear of cervix shows high risk [...] NP LAB BLOOD ORDERABLES Final Resul t [facility] [address] [place] [address] * Differential, auto (01/01/2025 12:00 PM CDT) Neutrophil abs 5.5 1.5 - 6.5 K/cumm Imm gran abs 0.0 0.0 - 0.1 K/cumm [facility] Lymphocyte abs 2.6 0.8 - 3.3 K/cumm [facility] Monocyte abs 0.6 0.2 - 0.8 K/cumm [facility] Eosinophil abs 0.1 0.0 - 0.5 K/cumm [facility] Basophil abs 0.1 0.0 - 0.1 K/cumm [facility] Neutrophil pct 61.9 % [facility] Comment: Interpretive Data Percent cell count reference ranges are not reported, since discordance with absolute values may lead to misinterpretation of CBC data. Current Interpretive Data was last revised on 2018. Imm gran pct 0.3 % [facility] Comment: Interpretive Data Percent cell count reference ranges are not reported, since discordance with absolute values may lead to misinterpretation of CBC data. Current Interpretive Data was last revised on 2018. Lymphocyte pct 29.1 % [facility] Comment: Interpretive Data Percent cell count reference ranges are not reported, since discordance with absolute values may lead to misinterpretation of CBC data. Current Interpretive Data was last revised on 2018. Monocyte pct 6.7 % [facility] Comment: Interpretive Data Percent cell count reference ranges are not reported, since discordance with absolute values may lead to misinterpretation of CBC data. Current Interpretive Data was last revised on 2018. Eosinophil pct 1.0 % [facility] Comment: Interpretive Data Percent cell count reference ranges are not reported, since discordance with absolute values may lead to misinterpretation of CBC data. Current Interpretive Data was last revised on 2018. Basophil pct 1.0 % [facility] Comment: Interpretive Data Percent cell count reference ranges are not reported, since discordance with absolute values may lead to misinterpretation of CBC data. Current Interpretive Data was last revised on 2018. Blood 01/01/2025 12:0 0 PM CDT 01/01/2025 8:31 PM CDT us Estrella Lee MONUMENT SETTER LAB BLOOD ORDERABLES Final Resul t Performing Organization Address City/[facility] Co de Phone Number VERONICA HADDAD [address] [facility] [place] [address] * Thyroid Function Mitchell (01/01/2025 12:00 PM CDT) TSH 1.19 0.30 - 4.20 mcIUnit/mL Blood 01/01/2025 12:0 0 PM CDT 01/01/2025 8:31 PM CDT us Estrella Lee MONUMENT SETTER LAB BLOOD ORDERABLES Final Resul t Performing Organization Address [facility] de Phone Number VERONICA HADDAD [address] [facility] [place] [address] * CBC with auto differential (01/01/2025 12:00 PM CDT) WBC 8.9 3.8 - 9.9 K/cumm Hgb 13.4 11.9 - 15.5 g/dL [facility] Hct 40.5 35.6 - 45.5 % [...] 01/01/2025 8:31 PM CDT us Estrella Lee MONUMENT SETTER LAB BLOOD ORDERABLES Final Resul t Performing Organization Address City/[facility]/ZIP Co de Phone Number VERONICA HADDAD [address] [facility] [place] [address] * (ABNORMAL) Vitamin D 25 hydroxy (01/01/2025 12:00 PM CDT) Vitamin D 25-OH 18(L) 30 - 80 ng/mL Blood 01/01/2025 12:0 0 PM CDT 01/01/2025 8:31 PM CDT us Estrella Lee MONUMENT SETTER LAB BLOOD ORDERABLES Edited Resu lt - Final Performing Organization Address [facility] Co de Phone Number JUANKIA HADDAD [address] [place] [address] * Magnesium (01/01/2025 12:00 PM CDT) Magnesium 2.5 1.4 - 2.5 mg/dL Blood 01/01/2025 12:0 0 PM CDT 01/01/2025 8:31 PM CDT us Estrella Lee MONUMENT SETTER LAB BLOOD ORDERABLES Final Resul t Performing Organization Address [facility] Co de Phone Number VERONICA HADDAD [address] [place] [address] * Iron level (01/01/2025 12:00 PM CDT) Iron 73 35 - 145 mcg/dl Blood 01/01/2025 12:0 0 PM CDT 01/01/2025 8:31 PM CDT us Estrella Lee MONUMENT SETTER LAB BLOOD ORDERABLES Final Resul t Performing Organization Address [facility]/ZIP Co de Phone Number VERONICA HADDAD [address] [place] [place], [place] [id number] * (ABNORMAL) Lipid panel (01/01/2025 12:00 PM CDT) Cholesterol 190 30 - 199 mg/dL Comment: [...] on 2018. Triglycerides 202(H) <=149 mg/dL VERONICA HADDAD Comment: Interpretive Data Ages < or = [...] on 2018. HDL 40 >=40 mg/dL VERONICA HADDAD Comment: Interpretive Data Ages < or = [...] 2018. LDL, calculated 115 <=129 mg/dL VERONICA HADDAD Comment: Interpretive Data Ages < or = 19 years Acceptable: <110 mg/dL Borderline high: 110-129 mg/dL High: >or= 130 mg/dL Ages > or = 20 years Optimal: <100 mg/dL Near optimal: 100-129 mg/dL Borderline high: 130-159 mg/dL High: >160 mg/dL Calculated using the Quique LDL-C estimating equation. This equation was implemented on 2024. Prior to this date LDL-C was estimated using the Friedewald equation. Literature References: 1. Expert Panel on Integrated Guidelines for Cardiovascular Health and Risk Reduction in Children and Adolescents. Pediatrics 2011;128:S213 2. NCEP Expert Panel. Circulation 2004;110:227 3. Quqiue Arenas et al. JN Cardiol. 2019February 06;5(5):540-548. doi: 10.1001/jamacardio.2020.0013 Current Interpretive Data was last revised on 2024. Non-HDL Cholesterol 150 mg/dL [facility] Comment: Interpretive Data Ages < or = [...] CDT 01/01/2025 8:31 PM CDT Estrella Lee MONUMENT SETTER LAB BLOOD ORDERABLES Final Resul t [facility] [address] [place] [address] * Comprehensive metabolic panel (01/01/2025 12:00 PM CDT) Sodium 137 135 - 145 mmol/L Potassium, pl 4.3 3.3 - 4.9 mmol/L [facility] Chloride 102 97 - 110 mmol/L [facility] CO2 22 22 - 32 mmol/L [facility] Anion gap 13 2 - 15 mmol/L [facility] BUN 23 6 - 25 mg/dL [facility] Creatinine 1.07 0.60 - 1.10 mg/dL [facility] Glucose 89 70 - 199 mg/dL [facility] Comment: Interpretive Data Fasting glucose >/= 126 [...] Calcium 9.4 8.5 - 10.3 mg/dL [facility] Bilirubin, total 0.2 0.1 - 1.2 mg/dL [facility] Protein, pl 7.6 6.5 - 8.5 g/dL [facility] Albumin 4.6 3.5 - 5.0 g/dL [facility] Alk phos 79 40 - 130 Units/L [facility] ALT 10 7 - 45 Units/L [facility] AST 25 10 - 45 Units/L [facility] Blood 01/01/2025 12:0 0 PM CDT 01/01/2025 8:31 PM CDT us Estrella Lee NP LAB BLOOD ORDERABLES Final Resul t Performing Organization Address City/State/[facility] Co de Phone Number [facility] [address] [place] [address] * Pap and High Risk HPV, reflex to Genotyping (08/16/2021 1:48 PM SCHOLASTIC APTITUDE TEST GRADER) Swab (Pap test) 08/16/2021 1 :48 PM SCHOLASTIC APTITUDE TEST GRADER 08/18/2021 9:56 AM SCHOLASTIC APTITUDE TEST GRADER Narrative PATHOLOGY [facility] - 08/24/2021 9:40 AM SCHOLASTIC APTITUDE TEST GRADER [facility] results best viewed via link to PDF [address] [address] Tele: Tonja Laura MD - Medieval English Literature Professor CYTOLOGY REPORT Note to Patients: This [...] the details. Patient Name: SALIMA YANG Address: [address] [place] [address] Gender: F : 1985 (Age: 36) Service: Location: N : [id number] Hospital #: [id number] Patient Type: [facility] SPECIMEN Taken: 08/16/2021 Reported: 08/24/2021 Physician(s): Mandie Colbert M.D. FINAL DIAGNOSIS: Specimen Type: - ThinPrep Pap and HPV w/ reflex Genotyping Statement of Specimen Adequacy: Source: Cervical/Endocervical - Satisfactory for interpretation - Endocervical /Transformation Zone component present - Case screened using computer assisted imaging technology and manually re- screened by a cyber software engineer. General Categorization: - Negative for intraepithelial lesion or malignancy Interpretation: - Specimen sent for reflex HPV testing. b/08/24/2021 09:40 JENN Gatica (ASCP) JENN Webster (ASCP) Report Reviewed and Electronically Signed By JENN Webster (ASCP) Clerical Data Follow A; G0145 ADDENDA: Addendum Comment Ancillary Testing: HPV High Risk Group (16, 18, 31, 33, 35, 39, 45, 51, 52, 56, 58, 59, 66 and 68) - Detected Reference Range: Not Detected This test was performed using the SPRING 4800 JENN WebsterASCP) Date Ordered: 08/19/2021 Status: Signed Out Date Complete: 08/25/2021 By: JENN WebsterASCP) Date Reported: 08/25/2021 Addendum Comment Ancillary Testing: [...] has been rescreened in accordance with the [facility] Laboratory Quality Management Program. REPORT [...] MD LAB CYTOLOGY ORDERABLES Fin al Result PATHOLOGY [facility] Laboratory Receiving [address] [place] [address] * Hepatitis C antibody (05/28/2018 4:16 PM CDT) Hep C Ab Non-Reactiv e Non-Reactiv e [facility] Blood specimen (specimen) 05/28/2018 4:16 PM CDT 05/28/2018 5:20 PM CDT Narrative [facility] - 05/28/2018 6:29 PM CDT Mandie Colbert MD LAB MICROBIOLOGY - GENERAL ORDERABLES Final Result [facility] [address] [place] [address] from Last 3 Months or Most Recently Relevant to Health Maintenance Insurance [facility] CLAIMS Advance Directives For more information, please contact: [phone] * Full Code (Latest Code Status on File) Date Activated Date Inactivated Comments 12/27/2018 5:32 PM 12/29/2018 7:18 PM * Full Code Date Activated Date Inactivated Comments 12/27/2018 10:21 AM 12/27/2018 5:32 PM Full CPR in case of cardiopulmonary arrest Care Teams Inspector Poising Relationship Specialty Start Date End Date Estrella Lee NP [address] [place] [address] PCP - General Family Medicine 01/19/23 Mandie Colbert MD Front Desk Manager Obstetrics and Gynecology 07/09/18
--- OUTSIDE RECORDS SUMMARY | 2025-01-20 13:32 | XMS_ITS | Encounter Summary ---
Author Organization [facility] Address [address] [place] [address] Care Team Providers Care Recreational Resort Manager Name Role Phone Britt Jose MD Primary Care Provider [phone] Encounter Details Date Type Department Care Team (Late st Contact Info) Description 04/05/2023 First Retailhart Message Person [facility] [address] [place], [place] [id number] Enerplant, [facility] Provider Air Quality Message Social [...] Total Score: 1 11/01/19 22 11:48 AM CAR WIPER documented as of this encounter Care Teams Recreational Resort Manager Relationship Specialty Start Date End Date Britt Jose MD [address] [facility] [address] [place] [address] PCP - General INTERNAL MEDICINE 04/26/21 documented as of this encounter
--- OUTSIDE RECORDS SUMMARY | 2025-01-20 13:32 | XMS_ITS | Clinical Summary ---
Author Organization [facility] Address [address] [place] [address] Care Team Providers Care Coating Mixer Name Role Phone Unavailable Primary Care Provider Unavailabl e Immunizations Immunization Administration Dates Next Due Covid-19, Mrna, Lnp-s, Pf, 30 Mcg/0.3 Ml Dose (P fizer) 10/13/2021 Social History Tobacco Use Types Packs/Day Years Used Date Smoking Tobacco: Never Assessed Comments Unknown Sex and Gender Information Value Date Recorded Sex Assigned at Not on file Legal Sex Female 7:46 AM BABY FORMULA MIXER Gender Identity Not on file Sexual Orientation [...]
--- OUTSIDE RECORDS SUMMARY | 2025-01-20 13:32 | XMS_ITS | Encounter Summary ---
Author Organization [facility] Address [address] [place] [address] Phone Care Team Providers Care Men'S Swim Coach Name Role Phone Yodit Santana MD Primary Care Provider Ajith Allison DO Primary Care Provider [phone] Mandie Colbert MD Unavailable Britt Jose MD Primary Care Provider [phone] Estrella Lee NP Primary Care Provider [phone] Encounter Details Date Type Department Care Team (Latest Contact Info) Description 03/28/2017 Orders Only [facility] CONVERSION Scanning, Provider Social History Tobacco Use Types Packs/Day Years Used Date Smoking Tobacco: Never Assessed Comments Unknown Sex and Gender Information Value Date Recorded Sex Assigned at Not on file Legal Sex Female 3:12 PM YOKE PRESSER Gender Identity Not on file Sexual Orientation Not on file documented as of this encounter Plan of Treatment Upcoming Encounters Date Type Department Care Team (Late st Contact Info) Description 01/23/2025 2:30 PM CDT Hospital Encounter [facility] Cardiology [address] [place] [address] documented as of this encounter Procedures Procedure Name Priority Date/Time Associated Diagnosis Comments OBSTETRIC/GYNECOLOGY ULTRASONOGRAPHY REPORT 03/28/2017 9:17 AM CDT documented in this encounter Results * OBSTETRIC/GYNECOLOGY ULTRASONOGRAPHY REPORT (03/28/2017 9:17 AM CDT) Anatomical Region Laterality Modality Ultrasound us Provider Scanning IMG OB US PROCEDURES Final Res ult documented in this encounter Visit Diagnoses Not on filedocumented in this encounter Care Teams Men'S Swim Coach Relationship Specialty Start Date End Date Yodit Santana MD [address] [place] [address] PCP - General 02/10/17 05/27/18 Ajith Allison DO [address] [place] [address] PCP - General Internal Medicine 05/28/18 11/28/21 Britt Jose MD [address] [place], [place] [id number] PCP - General Internal Medicine 11/29/21 01/18/23 Estrella Lee NP [address] [place], [place] [phone] PCP - General Family Medicine 01/19/23 Mandie Colbert MD [address] [place] [address] Joss House Keeper Obstetrics and Gynecology 07/09/18 documented as of this encounter
--- OUTSIDE RECORDS SUMMARY | 2025-01-20 13:32 | XMS_ITS | Encounter Summary ---
Author Organization [facility] Address [address] [place] [address] Care Team Providers Care Concrete Boom Operator Name Role Phone Britt Jose MD Primary Care Provider [phone] Encounter Details Date Type Department Care Team (Latest Contact Info) Description 08/03/2022 CloudBilthart Message Enc [facility] [place] [address] [place] [address] [address] [place] [address] Britt Jose MD [address] [facility] [address] [place], [place] [id number] Discontinue zoloft Social History Tobacco Use Types [...] Total Score: 1 11/01/19 22 11:48 AM SOLAR FABRICATION TECHNICIAN documented as of this encounter Care Teams Concrete Boom Operator Relationship Specialty Start Date End Date Britt Jose MD [address] [address] PCP - General INTERNAL MEDICINE 04/26/21 documented as of this encounter
--- OUTSIDE RECORDS SUMMARY | 2025-01-20 13:32 | XMS_ITS | Encounter Summary ---
Author Organization [facility] Address [address] [place] [address] Care Team Providers Care Consultant In Ergonomics And Safety Name Role Phone Raoul Fairbanks MD Primary Care Provider [phone] Encounter Details Date Type Department Care Team (Late st Contact Info) Description 07/30/2024 Lab Requisition [facility]ician [facility] - DermPath Lab [address] [facility], [place] [address] Stacy Malone MD [address] [facility] [address] [place] [address] Social History Tobacco Use Types Packs/Day Years [...] AM CDT) Case Report Dermatopathology Report Case: [id number] Authorizing Provider: Stacy Malone MD Collected: 07/30/2024 09:44 AM Ordering Location: [facility] Physician [facility] - Received: 07/30/2024 04:29 PM DermPath Lab [...] characteristic determined by the Dermatopathology Laboratory at [facility], directed by Dr. Ryan Mendoza. These tests need not be, and therefore are not, approved by the [place] Food and Drug Administration. The tests are used for clinical purposes. Billing Codes Specimen Charges Stain Charges 85289 1 4:04 PM CDT DERMATOPATHOLOGY LABORATORY Embedded Images 4:04 PM CDT DERMATOPATHOLOGY LABORATORY Pathology/Cytolo gy TISSUE SPECIMEN FROM SKIN / Unknown 07/30/2024 9:44 AM CDT 07/30/2024 4:29 PM CDT Stacy Malone MD LAB - PATHOLOGY/CYTOLOGY OR DERABLES Final Result DERMATOPATHOLOGY LABORATORY [facility] - Department of Dermatology [address] [phone] documented in this encounter Visit Diagnoses Not on filedocumented in this encounter Care Teams Consultant In Ergonomics And Safety Relationship Specialty Start Date End Date Raoul Fairbanks MD PCP - General 04/28/20 documented as of this encounter
== END 2025-01-20 15:16 | disposition home or self-care (01) ==
PROVIDERS: Emergency Medicine; Emergency Provider Emergency Medicine; PCP Nurse Practitioner Family
DX: R00.2 Palpitations (principal); F41.9 Anxiety disorder, unspecified
CPT/HCPCS: 36415; 80053; 80307; 81003; 81025; 84443; 84484; 85025; 93005; 99284